=== PATIENT | female | born 1925 | race Caucasian/White ===

== ENCOUNTER 2016-08-25 16:15 | Inpatient (IN) | payer MEDICARE, BC ==
[2016-08-25 17:06] LABS: AUTOMATED BASOPHIL 0.9 % (0-2); AUTOMATED LYMPH 4.9 % (17-44); AUTOMATED MONOCYTE 5.4 % (3-10); AUTOMATED NEUTROPHIL 88.8 % (45-76); MPV 9.2 fL (7.4-10.4)
[2016-08-25 17:11] LABS: LEUKOCYTES/URINE 2+ (NEGATIVE); NITRITE/URINE NEG (NEGATIVE); URINE OCCULT BLOOD 1+ (NEG/TRACE)
[2016-08-25 17:16] LABS: BLOOD UREA NITROGEN 20 MG/DL (7-17); CALCIUM 9.4 MG/DL (8.4-10.2); CALCULATED OSMOLALITY 270 MOs/Kg (270-290); CHLORIDE 97 mEq/L (98-107); GLUCOSE 112 MG/DL (70-99); SODIUM LEVEL 138 mEq/L (137-146)
[2016-08-25] MEDS ORDERED: NS 1,000 ML IV ONE (20:55)
[2016-08-25] MEDS ORDERED: ONDANSETRON HCL 4 MG/2 ML VIAL IV ONE (20:56)
[2016-08-25] MEDS ORDERED: HYDROmorphone 1 MG INJECTION IV ONE (20:56)
[2016-08-25] MEDS ORDERED: Pharmacy Review for Metformin - IV Contrast Given SCH (21:00)
--- NOTE | 2016-08-25 22:12 | EDPRACDOC ---
- General Information Chief Complaint: Abdominal Pain Stated Complaint: ABDOMINAL PAIN Time Seen by Provider: 08/25/16 20:55 Information Source: Patient Mode Of Arrival: Car Home Medications: Home Medications Calcium Carbonate + Vitamin D [Oscal with Vitamin D] 500 mg PO BID 10/29/14 Fe Fum/Vit E AC/Vit Bcomp&C/Mn [B-50 Formula Tablet] 1 tab PO QHS 10/29/14 Gabapentin [Neurontin] 300 mg PO TID 10/29/14 Losartan Potassium [Cozaar] 50 mg PO DAILY 10/29/14 [place]-3 Fatty Acids/Fish Oil [Fish Oil 1,000 mg Capsule] 1,000 mg PO BID Spironolactone [Aldactone] 25 mg PO DAILY 10/29/14 Apixaban [Eliquis] 2.5 mg PO BID 08/25/16 Furosemide [Lasix] 20 mg PO BID 08/25/16 Allergies/Adverse Reactions: Allergies Allergy/AdvReac Type Severity Reaction Status Date / Time lisinopril Allergy Severe ANGIOEDEMA Verified 08/25/16 16:46 nabumetone [From Relafen] Allergy Severe SWELLINMG Verified 08/25/16 16:46 lorazepam AdvReac See Verified 08/25/16 16:46 Comments - History of Present Illness Onset: this AM Pain Location: Reports: RLQ, Periumbilical Pain Context: Reports: Spontaneous Pain Severity: Mild Pain Quality: Reports: Aching Adult Abdominal History: Denies: Abdominal Surgery Female Abdominal History: Reports: UTI. Denies: Abdominal Surgery Modifying Factors: improves with: Nothing Female Associated Signs & Symptoms: Reports: Nausea Oral Intake: Normal Urinary Output: Normal ED Past Medical History - History Reviewed Yes Nurses notes reviewed and agree except as marked - Patient Medical History Cardiac History: Reports: Hypertension, Congestive Heart Failure, Hypercholesterolemia, Syncope (5 YEARS) Respiratory History: Reports: Pneumonia, Pulmonary Embolism (NEW OCTOBER 2014) GI/ History: Reports: Urinary Tract Infection. Denies: Kidney Stones Musculoskeletal History: Reports: Arthritis (BACK), Osteoarthritis Psychological History: Reports: Anxiety. Denies: Depression, Substance Use Disorder Systemic History: Denies: Cancer Surgical History: Reports: Hernia Surgery (groin 195), Tonsillectomy/ Adnoidectomy - Family Medical History Reports: Hypertension (mother), Cancer (mother-breast) - Social Medical History Smoking Status: Never smoker Social History: Denies: Substance Use Disorder EDM Review of Systems - Review of Systems ROS Negative Except as Marked: Yes All systems reviewed and were negative except as marked - Physical Exam Constitutional: Alert (Awake), No apparent distress Oriented to: Time, Person, Place Last recorded Vital Signs: Last Vital Signs Temp 98.3 F 08/25/16 16:48 Pulse 63 08/25/16 21:25 Resp 18 08/25/16 21:25 BP 138/62 08/25/16 21:25 Pulse Ox 96 08/25/16 21:25 Oxygen Pulse Oxygen Saturation 96 O2 Device Room Air Oxygen Flow Rate Fraction of Inspired Oxygen ( FIO2) - HEENT Head: Normal ( normocephalic) Eye Exam: Normal (PERRL, EOMI, Sclera white) Oropharynx: Normal (Pharynx:Moist without exudate,Gums-no swelling) Tympanic Membrane: Normal ENT EAC: Normal TMJ: Normal Nose: No Symptoms Reported (septum midline) Neck: Normal (FROM, trachea at midline) - Respiratory/Cardiovascular Respiratory: Normal - CTA (BBS clear to auscultation without adventitious sounds ) Cardiovascular: Normal (RRR without murmur, gallop or rub) - GI Auscultation: Normal (NABS) Palpation: Normal (Soft,No rebound or guarding, non distended) Tenderness: Mild Hoang's Sign: Negative - Musculoskeletal Back: Normal (Non-Tender) Extremities: Normal (Normal tone, Pulses 2+ No cyanosis or edema, FROM) - Integumentary Skin: Normal, Warm, Dry Lymphatics: Normal (no adenopathy) - Neurologic Memory Impaired: Normal Motor Function: Normal (Normal tone, Pulses 2+ No cyanosis or edema, FROM) Cranial Nerve: Normal (CN II-X11 intact sensation, strength 5/5) Cerebellar: Normal Mood Description: Normal Perception: Normal - Results 08/25/16 16:50 08/25/16 16:50 WBC 13.0 xk/uL (3.8-10.8) H 08/25/16 16:50 RBC 4.21 xM/uL (4.20-5.40) 08/25/16 16:50 Hgb 13.3 g/dL (12.0-16.0) 08/25/16 16:50 Hct 39.9 % (36-47) 08/25/16 16:50 MCV 95 fL (81-99) 08/25/16 16:50 MCH 31.7 pg (27-32) 08/25/16 16:50 MCHC 33.4 g/dl (33-36) 08/25/16 16:50 RDW 13.0 % (11.5-14.5) 08/25/16 16:50 Plt Count 189 xk/uL (130-400) 08/25/16 16:50 MPV 9.2 fL (7.4-10.4) 08/25/16 16:50 Neut % (Auto) 88.8 % (45-76) H 08/25/16 16:50 Lymph % (Auto) 4.9 % (17-44) L 08/25/16 16:50 Payne % (Auto) 5.4 % (3-10) 08/25/16 16:50 Eos % (Auto) 0.0 % (0-5) 08/25/16 16:50 Baso % (Auto) 0.9 % (0-2) 08/25/16 16:50 Absolute Neuts (auto) 11.44 xk/uL (1.7-8.2) H 08/25/16 16:50 Absolute Lymphs (auto) 0.52 xk/uL (0.65-4.75) L 08/25/16 16:50 Sodium 138 mEq/L (137-146) 08/25/16 16:50 Potassium 4.5 mEq/L (3.5-5.1) 08/25/16 16:50 Chloride 97 mEq/L (98-107) L 08/25/16 16:50 Carbon Dioxide 30 mMOL/L (22-33) 08/25/16 16:50 Anion Gap 16 mEq/L (8-16) 08/25/16 16:50 BUN 20 MG/DL (7-17) H 08/25/16 16:50 Creatinine 0.80 MG/DL (0.52-1.04) 08/25/16 16:50 Estimated GFR (MDRD) > 60 mL/min (>=60) 08/25/16 16:50 Glucose 112 MG/DL (70-99) H 08/25/16 16:50 Calculated Osmolality 270 MOs/Kg (270-290) 08/25/16 16:50 Calcium 9.4 MG/DL (8.4-10.2) 08/25/16 16:50 Total Bilirubin 0.8 MG/DL (0.2-1.3) 08/25/16 16:50 AST 36 IU/L (14-36) 08/25/16 16:50 ALT 35 IU/L (9-52) 08/25/16 16:50 Alkaline Phosphatase 78 IU/L (55-165) 08/25/16 16:50 Total Protein 8.0 G/DL (6.3-8.2) 08/25/16 16:50 Albumin 4.2 G/DL (3.5-5.0) 08/25/16 16:50 Urine Color Dark yellow 08/25/16 16:55 Urine Clarity Cldy 08/25/16 16:55 Urine pH 6.0 (5.0-8.0) 08/25/16 16:55 Ur Specific Banner 1.005 (1.003-1.035) 08/25/16 16:55 Urine Protein Neg (NEG/TRACE) 08/25/16 16:55 Urine Glucose (UA) Trace (NEGATIVE) 08/25/16 16:55 Urine Ketones Neg (NEGATIVE) 08/25/16 16:55 Urine Occult Blood 1+ (NEG/TRACE) H 08/25/16 16:55 Urine Nitrite Neg (NEGATIVE) 08/25/16 16:55 Urine Bilirubin Neg (NEGATIVE) 08/25/16 16:55 Urine Urobilinogen <2.0 MG/DL (0-1) 08/25/16 16:55 Ur Leukocyte Esterase 2+ (NEGATIVE) H 08/25/16 16:55 Urine RBC 5-10 (0-5) H 08/25/16 16:55 Urine WBC 10-20 (0-5) H 08/25/16 16:55 Ur Epithelial Cells 1+ 08/25/16 16:55 Urine Bacteria Few (NEG/FEW) 08/25/16 16:55 Urine Mucus Occ (NEG/OCC) 08/25/16 16:55 Lab Results 08/25/16 08/25/16 08/25/16 16:55 16:50 16:50 WBC 13.0 H RBC 4.21 Hgb 13.3 Hct 39.9 MCV 95 MCH 31.7 MCHC 33.4 RDW 13.0 Plt Count 189 MPV 9.2 Neut % (Auto) 88.8 H Lymph % (Auto) 4.9 L Payne % (Auto) 5.4 Eos % (Auto) 0.0 Baso % (Auto) 0.9 Absolute Neuts (auto) 11.44 H Absolute Lymphs (auto) 0.52 L Sodium 138 Potassium 4.5 Chloride 97 L Carbon Dioxide 30 Anion Gap 16 BUN 20 H Creatinine 0.80 Estimated GFR (MDRD) > 60 Glucose 112 H Calculated Osmolality 270 Calcium 9.4 Total Bilirubin 0.8 AST 36 ALT 35 Alkaline Phosphatase 78 Total Protein 8.0 Albumin 4.2 Urine Color Dark yellow Urine Clarity Cldy Urine pH 6.0 Ur Specific Banner 1.005 Urine Protein Neg Urine Glucose (UA) Trace Urine Ketones Neg Urine Occult Blood 1+ H Urine Nitrite Neg Urine Bilirubin Neg Urine Urobilinogen <2.0 Ur Leukocyte Esterase 2+ H Urine RBC 5-10 H Urine WBC 10-20 H Ur Epithelial Cells 1+ Urine Bacteria Few Urine Mucus Occ - Departure Yes I personally saw and evaluated the patient. Disposition: Admit IP To This Hospital Condition: Good Final Diagnosis: Appendicitis Instructions: Acute Abdominal Pain (ED) Decision to Admit Time: 22:42 (EARL) Decision to admit date: 08/25/16 Decision to admit: from ED
[2016-08-25] MEDS ORDERED: ERTAPENEM 1 GM in NS 100 ML IV ONE (22:13)
--- NOTE | 2016-08-25 22:45 | DIRPT ---
CLINICAL DATA: 89-year-old female with right lower quadrant abdominal pain since early this morning. EXAM: CT ABDOMEN AND PELVIS WITH CONTRAST TECHNIQUE: Multidetector CT imaging of the abdomen and pelvis was performed using the standard protocol following bolus administration of intravenous contrast. CONTRAST: 100 mL of Isovue 370. COMPARISON: CT of the chest, abdomen and pelvis 04/09/2015. FINDINGS: Lower chest: Scattered areas of mild scarring in the visualize lung bases. Tiny pulmonary nodules in the right lung base measuring up to 4 mm (image 5 of series 4). Atherosclerotic calcifications in the right coronary artery. Hepatobiliary: Sub cm low-attenuation lesion in segment 5 of the liver is too small to characterize, but is statistically likely a tiny cyst. No other suspicious appearing hepatic lesions are noted. Gallbladder is unremarkable in appearance. Pancreas: No pancreatic mass. No pancreatic ductal dilatation. No pancreatic or peripancreatic fluid or inflammatory changes. Spleen: Unremarkable. Adrenals/Urinary Tract: Altered right renal axis (normal anatomical variant) incidentally noted. Focal area of cortical thinning in the posterior aspect of the lower pole the left kidney, compatible with an area of post infectious or inflammatory scarring. Bilateral adrenal glands are normal in appearance. No hydroureteronephrosis. Urinary bladder is normal in appearance. Stomach/Bowel: The appearance of the stomach is normal. No pathologic dilatation of small bowel or colon. Numerous colonic diverticulae are noted, without surrounding inflammatory changes to suggest an acute diverticulitis at this time. Several appendicoliths are noted within the lumen of the appendix. The mid to distal aspect of the appendix is dilated measuring up to 14 mm in diameter. There are surrounding periappendiceal inflammatory changes and a trace amount of periappendiceal fluid. Vascular/Lymphatic: Atherosclerosis throughout the abdominal and pelvic vasculature, without evidence of aneurysm or dissection. No lymphadenopathy noted in the abdomen or pelvis. Reproductive: Uterus and ovaries are atrophic. Other: No significant volume of ascites. No pneumoperitoneum. Musculoskeletal: There are no aggressive appearing lytic or blastic lesions noted in the visualized portions of the skeleton. IMPRESSION: 1. Findings, as above, compatible with an acute appendicitis. Surgical consultation is strongly recommended at this time. 2. Atherosclerosis, including right coronary artery disease. 3. Additional incidental findings, as above. Critical Value/emergent results were called by telephone at the time of interpretation on 08/25/2016 at 10:[address] Liane COLE MD, who verbally acknowledged these results. Electronically Signed By: Aidan Sierra M.D. On: 08/25/2016 22:42
--- NOTE | 2016-08-25 23:09 | HIMCONSMED ---
Consultation Date: 08/25/16 Requesting Physician: Brijesh Villegas Consulting Doctor: Jorge Lacy Consult Reason: Medical Management PRIMARY CARE PROVIDER: Dr. Combs HPI: The patient is an 89 yo woman who presents with abdominal pain that worsened as the day went on. Onset: Started this morning. Duration: intermittent. Location: lower abdomen but worse on right. Radiation: none. Character: Shooting pain when she moves around. Pain was 7/10 at times. Alleviated by: Nothing. Exacerbated by: walking and moving around. Associated Symptoms: Nausea. No vomiting. No diarrhea. No constipation. No bloody stool. Decreased PO intake. No fever or chills. Treatments: none at home except usual medications. 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 Her last dose was today, , at 0730. Chief Complaint: abdominal pain - Past Medical and Surgical History Cardiac History: Reports: Atrial Fibrillation (on Eliquis), Hypertension, Hypercholesterolemia, Other (ECHO 2008: EF60%. Minimal aortic stenosis.) Respiratory History: Reports: Pneumonia, Pulmonary Embolism (DVT 2011 and 2014. PE October 2014 now on Eliquis.) GI/ History: Reports: Urinary Tract Infection. Denies: Kidney Stones Systemic History: Denies: Cancer Musculoskeletal History: Reports: Arthritis (BACK. Also neuropathy in feet.), Osteoarthritis Psychological History: Reports: Anxiety. Denies: Depression, Substance Use Disorder Past Surgical History: Reports: Hernia Surgery (groin 1957), Tonsillectomy/ Adnoidectomy, Other (Carpal tunnel around 1999.) OTHER HISTORY: ECHOCARDIOGRAM 11/06/2008: EF 60%. Normal left ventricular function. Impaired relaxation. Minimal aortic stenosis. Mild tricuspid regurgitation. Pulmonary artery pressure 30 mmHg. Had a negative stress test in [place] in 2008. Allergies lisinopril Allergy (Severe, Verified 08/25/16 16:46) ANGIOEDEMA nabumetone [From Relafen] Allergy (Severe, Verified 08/25/16 16:46) SWELLINMG lorazepam Adverse Reaction (Verified 08/25/16 16:46) See Comments Patient could not tolerate Lorazepam, it made her extremely 'loopy' and she said she would not like to take it ever again. Home Medications Calcium Carbonate + Vitamin D [Oscal with Vitamin D] 500 mg PO BID 10/29/14 Fe Fum/Vit E AC/Vit Bcomp&C/Mn [B-50 Formula Tablet] 1 tab PO QHS 10/29/14 Gabapentin [Neurontin] 300 mg PO TID 10/29/14 Losartan Potassium [Cozaar] 50 mg PO DAILY 10/29/14 [place]-3 Fatty Acids/Fish Oil [Fish Oil 1,000 mg Capsule] 1,000 mg PO BID Spironolactone [Aldactone] 25 mg PO DAILY 10/29/14 Apixaban [Eliquis] 2.5 mg PO BID 08/25/16 Furosemide [Lasix] 20 mg PO BID 08/25/16 Reviewed. - Social History Travel Outside of [place] in the Last 3 Months?: No Lives: Other (in appartments at [facility], not assisted living) Smoking Status: Never smoker Social History: Denies: Alcohol Use, Substance Use Disorder - Family History Reports: Hypertension (mother), Cancer (mother-breast) - Review of Systems GENERAL: No Fever, chills, or diaphoresis. Positive for fatigue/malaise. HEENT: No ear pain or discharge. No nasal discharge or bleeding. No throat pain or swelling. No eye pain or eye redness. RESPIRATORY: No cough, wheezing, or shortness of breath. CARDIOVASCULAR: No chest pain or palpitations. GI: Abdominal pain, nausea. No vomiting, diarrhea, constipation, or bloody stool. NEUROLOGICAL: No headache or focal weakness. INTEGUMENT: no rashes, itching, or lesions. LYMPHATIC SYSTEM: no lymph node swelling or pain. MUSCULOSKELETAL: no pain or joint swelling. GENITOURINARY: No dysuria or hematuria. ENDOCRINE: No polyuria or polydipsia. HEME: No chronic anemia, bleeding. Positive for easy bruising. - Physical Exam Vital Signs: Initial Vitals Temperature 98.3 F 08/25/16 16:48 Pulse Rate 61 08/25/16 16:48 Respiratory Rate 20 08/25/16 16:48 Blood Pressure 144/63 08/25/16 16:48 Pulse Oxygen Saturation 95 08/25/16 16:48 Vital Signs - 24 hr 08/25/16 08/25/16 16:48 21:25 Temperature 98.3 F Pulse Rate 61 63 Respiratory 20 18 Rate Blood Pressure 144/63 138/62 Pulse Oxygen 95 96 Saturation Weight: 74.8 kg Height: 5 feet 6 inches BMI: 26.6 - Other Exam Other Exam Findings: GENERAL: Ill-appearing, well nourished, in acute distress. HEENT: Normocephalic, atraumatic; pupils equal and round. Nares patent, without discharge or bleeding. No oropharyngeal lesions or erythema. Mucous membranes are dry. NECK: is supple, no masses, trachea midline. RESPIRATORY: Clear to auscultation bilaterally. Chest wall movements are symmetric. No use of accessory muscles to breathe. No wheezing, rales, rhonchi. CARDIOVASCULAR: Normal S1, S2. Murmur 3/6 systolic. No rubs, or gallops. PMI non -displaced. Carotids: no carotid bruits. No bradycardia or tachycardia. DP pulses 2+ bilaterally. GI: soft, non-distended, normal active bowel sounds. No hepatosplenomegaly. Tenderness in right lower quadrant. No rebound or guarding. INTEGUMENT: Clean, dry, and intact. No rashes. No lesions. MUSCULOSKELETAL: Moving all extremities. No cyanosis. No clubbing. Edema: trace lower extremity edema bilaterally. NEUROLOGICAL: Cranial nerves 2-12 grossly intact. Motor 5/5 throughout. Reflexes : 2+ bilaterally. Babinski: toes downgoing bilaterally. Intact Finger to nose. Sensory grossly intact to light touch. Intact rapid alternating movements bilaterally. No pronator drift. PSYCHIATRIC: Fully oriented. Normal and appropriate affect. LYMPHATIC: No cervical lymphadenopathy. No supraclavicular lymphadenopathy. - Lab Results Laboratory Results - last 24 hr 08/25/16 08/25/16 08/25/16 16:50 16:50 16:55 WBC 13.0 H RBC 4.21 Hgb 13.3 Hct 39.9 MCV 95 MCH 31.7 MCHC 33.4 RDW 13.0 Plt Count 189 MPV 9.2 Neut % (Auto) 88.8 H Lymph % (Auto) 4.9 L Weber % (Auto) 5.4 Eos % (Auto) 0.0 Baso % (Auto) 0.9 Absolute Neuts (auto) 11.44 H Absolute Lymphs (auto) 0.52 L Sodium 138 Potassium 4.5 Chloride 97 L Carbon Dioxide 30 Anion Gap 16 BUN 20 H Creatinine 0.80 Estimated GFR (MDRD) > 60 Glucose 112 H Calculated Osmolality 270 Calcium 9.4 Total Bilirubin 0.8 AST 36 ALT 35 Alkaline Phosphatase 78 Total Protein 8.0 Albumin 4.2 Urine Color Dark yellow Urine Clarity Cldy Urine pH 6.0 Ur Specific [place] 1.005 Urine Protein Neg Urine Glucose (UA) Trace Urine Ketones Neg Urine Occult Blood 1+ H Urine Nitrite Neg Urine Bilirubin Neg Urine Urobilinogen <2.0 Ur Leukocyte Esterase 2+ H Urine RBC 5-10 H Urine WBC 10-20 H Ur Epithelial Cells 1+ Urine Bacteria Few Urine Mucus Occ - Diagnostic Findings EK bpm. Sinus rhythm with first degree AV block. Left ventricular hypertrophy with repolarization abnormality. Possible inferior or anterior infarct, age undetermined. Reviewed EKG personally. CT abdomen and pelvis: EXAM: CT ABDOMEN AND PELVIS WITH CONTRAST TECHNIQUE: Multidetector CT imaging of the abdomen and pelvis was performed using the standard protocol following bolus administration of intravenous contrast. CONTRAST: 100 mL of Isovue 370. COMPARISON: CT of the chest, abdomen and pelvis 04/09/2015. FINDINGS: Lower chest: Scattered areas of mild scarring in the visualize lung bases. Tiny pulmonary nodules in the right lung base measuring up to 4 mm (image 5 of series 4). Atherosclerotic calcifications in the right coronary artery. Hepatobiliary: Sub cm low-attenuation lesion in segment 5 of the liver is too small to characterize, but is statistically likely a tiny cyst. No other suspicious appearing hepatic lesions are noted. Gallbladder is unremarkable in appearance. Pancreas: No pancreatic mass. No pancreatic ductal dilatation. No pancreatic or peripancreatic fluid or inflammatory changes. Spleen: Unremarkable. Adrenals/Urinary Tract: Altered right renal axis (normal anatomical variant) incidentally noted. Focal area of cortical thinning in the posterior aspect of the lower pole the left kidney, compatible with an area of post infectious or inflammatory scarring. Bilateral adrenal glands are normal in appearance. No hydroureteronephrosis. Urinary bladder is normal in appearance. Stomach/Bowel: The appearance of the stomach is normal. No pathologic dilatation of small bowel or colon. Numerous colonic diverticulae are noted, without surrounding inflammatory changes to suggest an acute diverticulitis at this time. Several appendicoliths are noted within the lumen of the appendix. The mid to distal aspect of the appendix is dilated measuring up to 14 mm in diameter. There are surrounding periappendiceal inflammatory changes and a trace amount of periappendiceal fluid. Vascular/Lymphatic: Atherosclerosis throughout the abdominal and pelvic vasculature, without evidence of aneurysm or dissection. No lymphadenopathy noted in the abdomen or pelvis. Reproductive: Uterus and ovaries are atrophic. Other: No significant volume of ascites. No pneumoperitoneum. Musculoskeletal: There are no aggressive appearing lytic or blastic lesions noted in the visualized portions of the skeleton. IMPRESSION: 1. Findings, as above, compatible with an acute appendicitis. Surgical consultation is strongly recommended at this time. 2. Atherosclerosis, including right coronary artery disease. 3. Additional incidental findings, as above. Critical Value/emergent results were called by telephone at the time of interpretation on 08/25/2016 at 10:[address] Liane COLE MD, who verbally acknowledged these results. - Assessment (1) Acute appendicitis K35.80 - UNSPECIFIED ACUTE APPENDICITIS Acute Present on Admission: Yes Patient is at moderate risk due to age and history of PE, atrial fibrillation, with long-term anticoagulation. Does have a murmur but EF normal by 2008 echocardiogram. Plan: Recommend proceeding with surgery because benefits outweigh risks. Agree with cultures and IV Zosyn. (2) Acute cystitis without hematuria N30.00 - ACUTE CYSTITIS WITHOUT HEMATURIA Acute Present on Admission: Yes Plan: Cultures ordered. IV Zosyn will also cover the UTI. (3) Current use of [facility] anticoagulation Z79.01 - EXPERT WITNESS (CURRENT) USE OF ANTICOAGULANTS Acute Present on Admission: Yes On Eliquis for history of pulmonary embolism and DVT in 2014 and a DVT in 2011, along with chronic atrial fibrillation. Plan: Stop Eliquis for surgery. Restart as soon as feasible. (4) Hypertension I10 - ESSENTIAL (PRIMARY) HYPERTENSION Acute Present on Admission: Yes Plan: Continue medications. Hold if SBP is less than 120. Case Care Discussed with: Patient, Family, Nursing Staff
[2016-08-25] MEDS ORDERED: PROMETHAZINE 25 MG/ML VIAL IV PRN (23:16)
[2016-08-26] MEDS: PIPERACILLIN AND TAZOBACTAM 3.375 GM in D5W 100 ML IV SCH ×5 (00:52→23:52)
[2016-08-26] MEDS ORDERED: GUAIFEN 100 MG-DEXTROMETH 10 MG PER 5 ML PO PRN (01:24)
[2016-08-26] MEDS ORDERED: ACETAMINOPHEN 325 MG SUPP PR PRN (01:24)
[2016-08-26] MEDS ORDERED: BENZONATATE 100 MG PERLES PO PRN (01:24)
[2016-08-26] MEDS ORDERED: TEMAZEPAM 15 MG CAP PO PRN (01:24)
[2016-08-26 01:58] LABS: MPV 9.7 fL (7.4-10.4)
[2016-08-26 02:04] LABS: BLOOD UREA NITROGEN 21 MG/DL (7-17); CALC CORRECTED 9.1 MG/DL (8.4-10.2); CALCIUM 8.4 MG/DL (8.4-10.2); CALCULATED OSMOLALITY 268 MOs/Kg (270-290); CHLORIDE 99 mEq/L (98-107); GLUCOSE 121 MG/DL (70-99); SODIUM LEVEL 137 mEq/L (137-146); TOTAL PROTEIN 6.6 G/DL (6.3-8.2)
[2016-08-26] MEDS: LR 1,000 ML IV SCH ×2 (02:27→23:41)
[2016-08-26] MEDS ORDERED: Vaccine Screening Complete SCH (03:00)
[2016-08-26] MEDS: GABAPENTIN 300 MG CAP PO SCH ×3 (04:32→20:37)
[2016-08-26] MEDS: HYDROmorphone 1 MG INJECTION IV PRN (08:41)
[2016-08-26] MEDS: FUROSEMIDE 20 MG TAB PO SCH ×2 (08:43→17:24)
[2016-08-26] MEDS: SPIRONOLACTONE 25 MG TAB PO SCH (08:44)
[2016-08-26] MEDS: LOSARTAN POTASSIUM 50 MG TAB PO SCH (08:44)
[2016-08-26] MEDS: OMEGA-3-ACID ETHYL ESTERS 1000 MG CAP PO SCH ×2 (08:44→20:37)
[2016-08-26] MEDS: CALCIUM CARBONATE + VITAMIN D 500 MG TAB PO SCH ×2 (12:25→17:29)
[2016-08-26] MEDS: VITS,MINERALS,IRON TAB PO SCH (12:25)
--- NOTE | 2016-08-26 13:35 | PCM.SURGCO ---
Consultation Date: 08/26/16 Requesting Physician: Allan Harris Bin Cleaner: Brijesh Villegas Consult Reason: Appendicitis - History of Present Illness The patient is a very pleasant 89-year-old female who developed abdominal pain yesterday. He continued so she had come to the emergency room and had a CT scan that showed appendicitis. We have been asked to see her for this. She has some nausea but no vomiting and no diarrhea. She has not had anything like this before in the past. She has no fever and no chills. She is on Eliquis for a history of DVT. Chief Complaint: abdominal pain - Past Medical and Surgical History Cardiac History: Reports: Atrial Fibrillation, Hypertension, Hypercholesterolemia, Other (ECHO 2008: EF60%. Minimal aortic stenosis.) Respiratory History: Reports: Pneumonia, Pulmonary Embolism (DVT 2011 and 2014. PE October 2014 now on Eliquis.) GI/ History: Reports: Urinary Tract Infection. Denies: Kidney Stones, Gastroesophageal Reflux Systemic History: Denies: Cancer, Diabetes Musculoskeletal History: Reports: Arthritis (BACK. Also neuropathy in feet.), Osteoarthritis Psychological History: Reports: Anxiety. Denies: Depression, Alcoholism, Substance Use Disorder Neurological History: Reports: No Significant History. Denies: Cerebrovascular Accident, Seizures Past Surgical History: Reports: Hernia Surgery (groin 1957), Tonsillectomy/ Adnoidectomy, Other (Carpal tunnel around 1999.) Allergies lisinopril Allergy (Severe, Verified 08/25/16 16:46) ANGIOEDEMA nabumetone [From Relafen] Allergy (Severe, Verified 08/25/16 16:46) SWELLINMG lorazepam Adverse Reaction (Verified 08/25/16 16:46) See Comments Patient could not tolerate Lorazepam, it made her extremely 'loopy' and she said she would not like to take it ever again. Home Medications Calcium Carbonate + Vitamin D [Oscal with Vitamin D] 500 mg PO BID 10/29/14 Fe Fum/Vit E AC/Vit Bcomp&C/Mn [B-50 Formula Tablet] 1 tab PO QHS 10/29/14 Gabapentin [Neurontin] 300 mg PO TID 10/29/14 Losartan Potassium [Cozaar] 50 mg PO DAILY 10/29/14 [place]-3 Fatty Acids/Fish Oil [Fish Oil 1,000 mg Capsule] 1,000 mg PO BID Spironolactone [Aldactone] 25 mg PO DAILY 10/29/14 Apixaban [Eliquis] 2.5 mg PO BID 08/25/16 Furosemide [Lasix] 20 mg PO BID 08/25/16 - Social History Travel Outside of [place] in the Last 3 Months?: No Lives: Other (in appartments at [facility], not assisted living) Smoking Status: Never smoker Social History: Denies: Alcohol Use, Substance Use Disorder - Family History Reports: Hypertension (mother), Cancer (mother-breast) - Review of Systems Constitutional: No Symptoms Reported. negative: Chills, Fever Eyes: No Symptoms Reported. negative: Blurred Vision, Double Vision Ears: No Symptoms Reported. negative: Hearing Loss, Pain Nose: No Symptoms Reported. negative: Abrasion, Bleeding Mouth: No Symptoms Reported. negative: Pain, Dry Mouth Throat/Neck: No Symptoms Reported. negative: Pain, Hoarseness Respiratory: No Symptoms Reported. negative: Cough, Wheezing Cardiovascular: No Symptoms Reported. negative: Chest Pain, Palpitations Gastrointestinal: Nausea, Abdominal Pain. negative: Vomiting, Diarrhea Genitourinary: No Symptoms Reported. negative: Bleeding, Dysuria Neurological: No Symptoms Reported. negative: Dizziness, Seizure Musculoskeletal:: Joint Pain. negative: Muscle Pain, Joint Swelling Integumentary: No Symptoms Reported. negative: Bruising, Rash Allergic/Immunologic: No Symptoms Reported. negative: Hives, Itching Hematologic: No Symptoms Reported. negative: Lymphadenopathy, Anemia Endocrine: No Symptoms Reported. negative: Weight Gain, Weight Loss Psychiatric: Anxiety. negative: Depression - Physical Exam Vital Signs: Initial Vitals Temperature 98.3 F 08/25/16 16:48 Pulse Rate 61 08/25/16 16:48 Respiratory Rate 20 08/25/16 16:48 Blood Pressure 144/63 08/25/16 16:48 Pulse Oxygen Saturation 95 08/25/16 16:48 Constitutional: No apparent distress, Alert Oriented to: Time, Person, Place - HEENT Head: Normal. negative: Abrasion, Laceration, Tender Eye: Normal. negative: Edema, Scleral Icterus Oropharynx: Normal. negative: Membranes Dry, Red ENT EAC: Normal. negative: Blood TMJ: Normal. negative: Crepitance, Tender Nose: No Symptoms Reported. negative: Abrasion, Bleeding Respiratory: Normal - CTA. negative: Diminished, Rhonchi Cardiovascular: negative: Bradycardia, Tachycardia, Diastolic murmur, Systolic murmur - GI Auscultation: Normal. negative: Bruit Palpation: Normal. negative: Enlarged liver, Enlarged spleen Tenderness: Mild, RLQ Hoang's Sign: Negative Rectal Exam: Deferred - Exam Deferred: Yes - Musculoskeletal Back: Normal. negative: Abrasion, CVA Tenderness Extremities: Normal. negative: Calf Tenderness, Clubbing, Cyanosis, Edema Spine: non-tender, full range of motion, normal alignment - Integumentary Skin: Normal. negative: Clammy, Diaphoretic Lymphatics: Normal. negative: Adenopathy, Tender - Neurologic Memory Impaired: Normal Motor Function: Normal Cranial Nerve: Normal Cerebellar: Normal Mood Description: Normal Thought: Coherent Perception: Normal - Lab Results 08/26/16 01:20 08/26/16 01:20 - Assessment/Plan (1) Acute appendicitis K35.80 - UNSPECIFIED ACUTE APPENDICITIS Acute Comment: Admit for IV antibiotics, IV fluids and laparoscopic appendectomy. Will have to wait until her Eliquis is out of her system so she does not bleed during surgery. I have explained this to her in detail and she is in agreement. (2) Deep vein thrombosis, lower left extremity I82.402 - ACUTE EMBOLISM AND THOMBOS UNSP DEEP VEINS OF L LOW EXTREM Acute Comment: Patient had been on Eliquis for over a year. Will stop briefly for surgery. (3) Pulmonary embolism I26.99 - OTHER PULMONARY EMBOLISM WITHOUT ACUTE COR PULMONALE Acute Comment: Has been treated for over a year. Will get her back on Eliquis as soon as possible. (4) Abdominal pain R10.9 - UNSPECIFIED ABDOMINAL PAIN Acute Comment: Treat underlying disorder.
--- NOTE | 2016-08-26 13:36 | GENMEDPROG ---
Chief Complaint: Still with severe right lower quadrant abdominal pain. She denies chest pain or shortness of breath. No nausea or vomiting. Notes Reviewed: Yes Events from last night noted and discussed with Clinical Staff Current Medication List: Reviewed Currently: Reports: Abdominal Pain. Denies: Cough, Wheezing, NUNEZ, SOB, Sputum, Nausea and Vomiting DVT Prophylaxis: Yes - Physical Examination Vital Signs and I&O: Last Vital Signs Temp 98.9 F 08/26/16 12:00 Pulse 61 08/26/16 12:00 Resp 20 08/26/16 12:00 BP 127/60 08/26/16 12:00 Pulse Ox 92 08/26/16 12:00 Oxygen Pulse Oxygen Saturation 92 O2 Device Nasal Cannula Oxygen Flow Rate 2 Fraction of Inspired Oxygen ( FIO2) Intake & Output 08/23/16 08/24/16 08/25/16 08/26/16 23:59 23:59 23:59 23:59 Intake Total 600 342 Output Total 800 Balance 600 -458 Patient's weight 75.523 kg General: Alert, Oriented x3, Cooperative, Well appearing, Well nourished HEENT: Normal, PERRLA, EOMI Neck: Non-tender, Full range of motion, Normal Trachea alignment, Normal inspection. negative: Tender midline, JVD Lymphatics: Normal (no adenopathy) Respiratory: Normal - CTA (BBS clear to auscultation without adventitious sounds ) Cardiovascular: Regular rate and rhythm, No Gallops,Rubs/Murmurs GI: Normal bowel sounds, Soft, Non tender, No hepatospenomegaly Extremities/Musculoskeletal: Normal pulses. negative: Tenderness, Swelling, Edema Skin: Warm,Dry and Intact, No rashes, No breakdown, No significant lesion Neurological: Normal Steady Gait, Normal speech, Strength at 5/5 X4 ext, Normal tone, Cranial nerves 3-12 NL Psych/Mental Status: Appropriate, Normal Affect, Cooperative Lab/DI/Studies Reviewed: Laboratory Results - last 24 hr 08/25/16 08/25/16 08/25/16 01:20 16:50 16:50 WBC 13.0 H RBC 4.21 Hgb 13.3 Hct 39.9 MCV 95 MCH 31.7 MCHC 33.4 RDW 13.0 Plt Count 189 MPV 9.2 Neut % (Auto) 88.8 H Lymph % (Auto) 4.9 L [place] % (Auto) 5.4 Eos % (Auto) 0.0 Baso % (Auto) 0.9 Absolute Neuts (auto) 11.44 H Absolute Lymphs (auto) 0.52 L Sodium 138 Potassium 4.5 Chloride 97 L Carbon Dioxide 30 Anion Gap 16 BUN 20 H Creatinine 0.80 Estimated GFR (MDRD) > 60 Glucose 112 H Calculated Osmolality 270 Lactic Acid 1.2 Calcium 9.4 Corrected Calcium Total Bilirubin 0.8 AST 36 ALT 35 Alkaline Phosphatase 78 Total Protein 8.0 Albumin 4.2 Urine Color Urine Clarity Urine pH Ur Specific [place] Urine Protein Urine Glucose (UA) Urine Ketones Urine Occult Blood Urine Nitrite Urine Bilirubin Urine Urobilinogen Ur Leukocyte Esterase Urine RBC Urine WBC Ur Epithelial Cells Urine Bacteria Urine Mucus 08/25/16 08/26/16 08/26/16 16:55 01:20 01:20 WBC 15.5 H RBC 3.82 L Hgb 12.0 Hct 36.2 MCV 95 MCH 31.3 MCHC 33.0 RDW 13.1 Plt Count 186 MPV 9.7 Neut % (Auto) Lymph % (Auto) [place] % (Auto) Eos % (Auto) Baso % (Auto) Absolute Neuts (auto) Absolute Lymphs (auto) Sodium 137 Potassium 4.5 Chloride 99 Carbon Dioxide 28 Anion Gap 15 BUN 21 H Creatinine 0.80 Estimated GFR (MDRD) > 60 Glucose 121 H Calculated Osmolality 268 L Lactic Acid Calcium 8.4 Corrected Calcium 9.1 Total Bilirubin 0.7 AST 30 ALT 37 Alkaline Phosphatase 65 Total Protein 6.6 Albumin 3.3 L Urine Color Dark yellow Urine Clarity Cldy Urine pH 6.0 Ur Specific [place] 1.005 Urine Protein Neg Urine Glucose (UA) Trace Urine Ketones Neg Urine Occult Blood 1+ H Urine Nitrite Neg Urine Bilirubin Neg Urine Urobilinogen <2.0 Ur Leukocyte Esterase 2+ H Urine RBC 5-10 H Urine WBC 10-20 H Ur Epithelial Cells 1+ Urine Bacteria Few Urine Mucus Occ - Assessment (1) Acute appendicitis Acute K35.80 - UNSPECIFIED ACUTE APPENDICITIS Qualifiers: Acute appendicitis type: unspecified acute appendicitis type Qualified Code (s): K35.80 - Unspecified acute appendicitis Comment/Plan: Continue IV antibiotics and pain control. Clinically appears stable. She is significantly tender in her right lower quadrant. Will go ahead and check a 2D echo given history of PE and AFib. (2) Abdominal pain Acute R10.9 - UNSPECIFIED ABDOMINAL PAIN Qualifiers: Abdominal location: right lower quadrant Qualified Code(s): R10.31 - Right lower quadrant pain Comment/Plan: IV antibiotics and pain control. (3) Current use of manager long term care anticoagulation Acute Z79.01 - COMPUTER LANGUAGE CODER (CURRENT) USE OF ANTICOAGULANTS Comment/Plan: Holding Eliquis for surgery. Restart when stable from surgery standpoint given long history of chronic AFib. (4) Dehydration Acute E86.0 - DEHYDRATION Comment/Plan: Resolved. Discontinue IV fluids (5) Hypertension Acute I10 - ESSENTIAL (PRIMARY) HYPERTENSION Qualifiers: Hypertension type: essential hypertension Qualified Code(s): I10 - Essential (primary) hypertension Comment/Plan: Continue medications, control pain. Monitor Case Care Discussed with: Patient, Family, Resource Management
[2016-08-26] MEDS: GENTAMICIN IV SCH (15:53)
[2016-08-26] MEDS: NS IV SCH (15:53)
--- NOTE | 2016-08-26 17:10 | CAPUECHO ---
INDICATION: PRE OP EVAL HEIGHT: 167.6 cm (5 ft 6.0 in) WEIGHT: 75.3 kg (166.0 lbs) BP: 108/54 BSA: 1.419046 m MEASUREMENTS 2D RVIDd: 3.0 cm IVSd: 1.2 cm LVIDd: 4.6 cm LVPWd: 1.2 cm LVIDs: 3.1 cm EF(Teich): 59.67 % LA Diam: 3.7 cm EF Biplane: 65.69 % LAESV MOD A4C: 63.7 ml LAESV MOD A2C: 82.4 ml LAESV Index (A-L): 44.38 ml/m DOPPLER MV E Elliot: 0.66 m/s MV A Elliot: 0.96 m/s MV PHT: 80.01 ms MVA By PHT: 2.75 cm LVOT Vmax: 1.40 m/s AV Vmax: 1.45 m/s TR Vmax: 3.21 m/s TR maxP mmHg RVSP: 51.17 mmHg FINDINGS ------- Procedure:2D images, m-mode, color and spectral Doppler were obtained and reviewed. ECG rhythm:Sinus rhythm. Study quality:This was a technically difficult study with suboptimal views. Left Ventricle:The left ventricular size is normal. Overall left ventricular systolic function is normal with, an EF between 55 - 60 %. The diastolic filling pattern indicates impaired relaxation. Right Ventricle:The right ventricle is normal in size and function. The RV was not well visualized . Left Atrium:The left atrium is normal in size. Right Atrium:The right atrium was not well visualized. Aortic Valve:The aortic valve is trileaflet and appears structurally normal. There is mild aortic valve sclerosis. Mitral Valve:Normal appearing mitral valve. Mild mitral regurgitation is present. Tricuspid Valve:The tricuspid valve appears structurally normal. [id number]-[id number] tricuspid regurg itation present. The right ventricular systolic pressure, as measured by Doppler, is 51mmhg.. Pulmonic Valve:The pulmonic valve is normal. Trace/mild (physiologic) pulmonic regurgitation. Aorta:The aortic root, ascending aorta and aortic arch appear normal. IVC:Normal inferior vena cava with normal inspiratory collapse. Pericardium:There is no pericardial effusion. CONCLUSIONS 1. This was a technically difficult study with suboptimal views. 2. Overall left ventricular systolic function is normal with, an EF between 55 - 60 %. 3. The diastolic filling pattern indicates impaired relaxation. 4. The left atrium is normal in size. 5. The right atrium was not well visualized. 6. Mild mitral regurgitation is present. 7. Dwic-cu-[id number] tricuspid regurgitation present. 8. The right ventricular systolic pressure, as measured by Doppler, is 51mmhg.. Electronically Signed By: Chucho Mathis MD -- Electronically Signed On: 17:04:31
[2016-08-26] MEDS: ACETAMINOPHEN 325 MG/TAB TABLET PO PRN (17:29)
[2016-08-26] MEDS ORDERED: [UNRECOGNIZED DRUG - OTHER] PO SCH (21:00)
[2016-08-26] MEDS ORDERED: VIT E AC PO SCH (21:00)
[2016-08-26] MEDS ORDERED: VIT BCOMP PO SCH (21:00)
[2016-08-27] MEDS: LR 1,000 ML IV SCH (03:48)
[2016-08-27] MEDS: GABAPENTIN 300 MG CAP PO SCH ×3 (03:49→22:02)
[2016-08-27] MEDS: HYDROmorphone 1 MG INJECTION IV PRN ×2 (04:05→14:03)
[2016-08-27] MEDS: PIPERACILLIN AND TAZOBACTAM 3.375 GM in D5W 100 ML IV SCH ×3 (06:16→18:38)
[2016-08-27] MEDS ORDERED: HYDROmorphone 1 MG INJECTION IV PRN ×2 (07:18)
[2016-08-27] MEDS ORDERED: FENTANYL 100 MCG/2 ML VIAL IV PRN ×2 (07:18)
[2016-08-27] MEDS ORDERED: MEPERIDINE 25 MG/ML TUBEX IV PRN (07:18)
[2016-08-27] MEDS ORDERED: LABETALOL 20 MG/4 ML SYRINGE IV PRN (07:18)
[2016-08-27] MEDS ORDERED: ONDANSETRON HCL 4 MG/2 ML VIAL IV PRN (07:18)
[2016-08-27] MEDS ORDERED: ONDANSETRON HCL 4 MG ODT TAB PO PRN (07:18)
[2016-08-27] MEDS ORDERED: hydrALAZINE 20 MG/ML VIAL IV PRN (07:18)
--- NOTE | 2016-08-27 07:22 | HIM.ANES ---
Anesthesia Evaluation & Plan - Focused Review of Systems Cardiac History: Yes: Hx Hypertension, Hx Cardia Arrhythmia (PT UNSURE OF NAME OR TYPE), Hx Afib/Aflutter, Hx Cardiac Disorders, Hx Deep Vein Thrombosis Comment Only: Hx Congestive Heart Failure (PT DENIES) HEENT: Yes: Macular Degeneration, Hx Vision Problem (Rx glasses), Other HEENT Problems Respiratory: Yes: Hx Pneumonia Gastrointestinal: Yes: Hx Gastrointestinal Disorders, Hx Colonoscopy (2004) Neurological/Musculoskeletal: Yes: Hx Syncope (5 YEARS), Hx Peripheral Neuropathy, Hx Neurological Disorders No: HX Cerebrovascular Accident, Hx Seizures Other Neurological Problems: NERUOPATHY Physiological: Yes Hx Anxiety, No Hx Depression, Yes Hx Mental/Emotional Disorders Endocrine: No: Hx Diet Controlled Diabetes, Hx Non-Insulin Dependent Diabetes, Hx Insulin Dependent Diabetes, Hx Hyperthyroidism, Hx Hypothyroidism Blood/Autoimmune: No: Hx Blood Transfusions, Hx Anemia, Hx AIDS, Hx Hepatitis (type) Smoking Status: Never smoker Past Social History: Denies: Alcohol Use, Substance Use Disorder Hx Stress Test (date): Yes (2008) Hx Echocardiogram (date): Yes (08/26/16) Hx Chest Xray (date): Yes (2014) Surgical History: Yes: Nasal (septoplasty), T&A, Other (Carpal tunnel around 1999.) Other Surgical History: right carpel tunnel surgery - APPROX 2009 - Focused Physical Exam NPO since: mn Mallampati: Class II Neck: Limited Range of Motion Dental: Removable Dental Work Cardiovascular/Chest: Normal Respiratory: Lungs clear Any problems with anesthesia, including nausea and vomiting?: No Any relatives with a history of Malignant Hyperthermia?: No Beta Ana given (if appropriate): N/A Other: Problem List Problem Status Onset Abdominal pain Acute Acute appendicitis Acute Acute cystitis without hematuria Acute Appendicitis Acute Current use of terminal carman anticoagulation Acute Deep vein thrombosis, lower left extremity Acute Dehydration Acute Hypertension Acute Monoclonal gammopathy of unknown significance Acute Pulmonary embolism Acute Respiratory failure, acute Acute Anxiety disorder Chronic Dyslipidemia Chronic CBC/BMP/Other 08/26/16 01:20 08/26/16 01:20 Allergies Allergy/AdvReac Type Severity Reaction Status Date / Time lisinopril Allergy Severe ANGIOEDEMA Verified 08/25/16 16:46 nabumetone [From Relafen] Allergy Severe SWELLINMG Verified 08/25/16 16:46 lorazepam AdvReac See Verified 08/25/16 16:46 Comments Home Medications Medication Instructions Recorded Last Taken Type Calcium Carbonate + Vitamin D 500 mg PO BID 10/29/14 08/25/16 History [Oscal with Vitamin D] Fe Fum/Vit E AC/Vit Bcomp&C/Mn 1 tab PO QHS 10/29/14 08/24/16 History [B-50 Formula Tablet] Gabapentin [Neurontin] 300 mg PO TID 10/29/14 08/25/16 History Losartan Potassium [Cozaar] 50 mg PO DAILY 10/29/14 08/25/16 History [place]-3 Fatty Acids/Fish Oil [Fish 1,000 mg PO BID 10/29/14 08/25/16 History Oil 1,000 mg Capsule] Spironolactone [Aldactone] 25 mg PO DAILY 10/29/14 08/25/16 History Apixaban [Eliquis] 2.5 mg PO BID 08/25/16 08/25/16 History Furosemide [Lasix] 20 mg PO BID 08/25/16 08/25/16 History Height and Weight Patient's height 5 ft 6 in Patient's weight 76.249 kg Weight (Calculated Kilograms) 76.249 BMI 27.1 Vital Signs Temperature 98.6 F 08/27/16 05:43 Pulse Rate 59 L 08/27/16 05:43 Respiratory Rate 18 08/27/16 05:43 Blood Pressure 121/47 L 08/27/16 05:43 Pulse Oxygen Saturation 95 08/27/16 05:43 - Anesthetic Plan Anesthesia Type: General ASA Class: 3, E -: I have examined this patient and reviewed the medical record. The patient has been assessed prior to anesthesia. Risks and benefits of anesthesia and anesthetic technique options have been discussed and all questions answered. The patient accepts the risk and desires me to proceed with the planned anesthetic.
[2016-08-27] MEDS: FUROSEMIDE 20 MG TAB PO SCH ×2 (07:27→15:35)
[2016-08-27] MEDS ORDERED: BUPIVACAINE 0.25%-EPINEPHRINE 1:200,000 30 ML ONE (07:51)
[2016-08-27 08:07] LABS: AUTOMATED BASOPHIL 0.2 % (0-2); AUTOMATED EOSINOPHIL 0.1 % (0-5); AUTOMATED LYMPH 8.1 % (17-44); AUTOMATED MONOCYTE 4.6 % (3-10); MPV 9.4 fL (7.4-10.4)
[2016-08-27 08:16] LABS: BLOOD UREA NITROGEN 22 MG/DL (7-17); CALC CORRECTED 9.3 MG/DL (8.4-10.2); CALCIUM 8.5 MG/DL (8.4-10.2); CALCULATED OSMOLALITY 266 MOs/Kg (270-290); CHLORIDE 97 mEq/L (98-107); GLUCOSE 120 MG/DL (70-99); SODIUM LEVEL 136 mEq/L (137-146); TOTAL PROTEIN 6.5 G/DL (6.3-8.2)
[2016-08-27] MEDS: LOSARTAN POTASSIUM 50 MG TAB PO SCH (09:36)
[2016-08-27] MEDS: SPIRONOLACTONE 25 MG TAB PO SCH (09:36)
[2016-08-27] MEDS: OMEGA-3-ACID ETHYL ESTERS 1000 MG CAP PO SCH ×2 (09:36→22:02)
--- NOTE | 2016-08-27 09:49 | SC.ANESPOS ---
Post-Anesthesia Note LOC: Fully Awake Post-Anesthesia Assessment: Awake, Returned to Baseline, Hemodynamically Stable , Pain Control Adequate Phase I & II Recovery Complete: Yes Apparent Anesthesia Complication: No : N PACU Discharge Time: 17:46 - Vital Signs Blood Pressure: 180/79 Pulse: 54 Resp Rate: 16 O2 Sat: 97 Temp: 97.6 F - Comments Anesthesia Discharge Time Report Time 17:46
[2016-08-27] MEDS ORDERED: SODIUM CHLORIDE 0.9% 3 ML FLUSH FLUSH PRN (09:54)
--- NOTE | 2016-08-27 09:59 | HIMOPRPT ---
DATE OF PROCEDURE: 08/27/16 PREOPERATIVE DIAGNOSIS: Acute appendicitis, abdominal pain. POSTOPERATIVE DIAGNOSIS: Acute appendicitis, abdominal pain, abscess with perforation. PROCEDURE: Laparoscopic appendectomy. SURGEON: Brijesh Villegas MD PRECISION LENS GRINDER: None ANESTHESIA: General Anesthesia. ESTIMATED BLOOD LOSS: Minimal COMPLICATIONS: None noted. ANTIBIOTICS: Preoperative antibiotics given. INDICATIONS: SANTO NUNN is a 89 year-old F patient. She had been found to have appendicitis. We had to wait for her Eliquis to wear off and had her on triple ABX. I explained the risks and benefits of surgery including the risk of infection, bleeding, and anesthesia. We explained all this in detail and brought the patient for the above-mentioned procedure. PROCEDURE IN DETAIL: The patient was brought to the operating room and placed on the operating room table in supine position. After identification of the site , was given adequate amount of general anesthesia, then prepped and draped in sterile manner. When given okay by anesthesia, after appropriate time-out, an Optiview trocar was placed on umbilicus in usual manner without any problems. Abdomen was insufflated to 15 mmHg pressure with CO2 gas, and the patient was positioned. Two other trocars were placed under direct vision. The appendix was acutely inflamed and perforated. There was purulent fluid. We went ahead, culured the abscess then irrigated out the abdomen till the irrigation was clear , and then went ahead, grabbed the appendix, took down the mesoappendix with harmonic scalpel dissection. Part of thevappendix was not attached because of the perforation and blowout. So, we went ahead at that point, dissected the base of the cecum to get back to normal cecum and placed a GI surgical stapler across the base of the appendix in order to close the defect. This was done without any difficulties, and the pieces of the appendix were then added into an Endopouch and removed without any problems. The abdomen was then reinsufflated. Abdomen was irrigated with copious amounts of saline, suctioned dry. Hemostasis assured. The staple line was hemostatic. A BRETT drain was placed in the plevis. We had irrigated till the irrigation was clear, and at that point, we removed the trocars. We went ahead, placing #1 Vicryl at the 12-mm trocar site and then deflated the abdomen. All wounds were irrigated and brought together with surgical clips. The patient was awoken, taken to recovery room in excellent condition with correct sponge counts and needle counts.
[2016-08-27] MEDS ORDERED: NEOSTIGMINE 1 MG/1 ML (1:1000) INJ 10 ML MDV IM ONE (10:00)
[2016-08-27] MEDS ORDERED: SODIUM CHLORIDE 0.9% 3 ML FLUSH FLUSH SCH (10:00)
[2016-08-27] MEDS ORDERED: ETOMIDATE 20 MG/10 ML VIAL IV ONE (10:00)
[2016-08-27] MEDS ORDERED: FENTANYL 100 MCG/2 ML VIAL IV ONE (10:00)
[2016-08-27] MEDS ORDERED: LIDOCAINE 100 MG PFS IV ONE (10:00)
[2016-08-27] MEDS ORDERED: GLYCOPYRROLATE 1 MG VIAL IM ONE (10:00)
[2016-08-27] MEDS ORDERED: ROCURONIUM 50 MG/5 ML VIAL IV ONE (10:00)
[2016-08-27] MEDS: CALCIUM CARBONATE + VITAMIN D 500 MG TAB PO SCH ×2 (11:22→18:35)
[2016-08-27] MEDS: VITS,MINERALS,IRON TAB PO SCH (11:22)
--- NOTE | 2016-08-27 13:02 | GENMEDPROG ---
Chief Complaint: Doing well. Minimal pain. No chest pain or shortness of breath. Notes Reviewed: Yes Events from last night noted and discussed with Clinical Staff Current Medication List: Reviewed Currently: Reports: Abdominal Pain. Denies: Cough, Wheezing, NUNEZ, SOB, Sputum, Nausea and Vomiting DVT Prophylaxis: Yes - Physical Examination Vital Signs and I&O: Last Vital Signs Temp 98.2 F 08/27/16 12:05 Pulse 48 L 08/27/16 12:05 Resp 20 08/27/16 12:05 BP 122/50 L 08/27/16 12:05 Pulse Ox 95 08/27/16 12:05 Oxygen Pulse Oxygen Saturation 95 O2 Device Nasal Cannula Oxygen Flow Rate 2 Fraction of Inspired Oxygen ( 100 FIO2) Intake & Output 08/24/16 08/25/16 08/26/16 08/27/16 23:59 23:59 23:59 23:59 Intake Total 600 1118 854 Output Total 1000 805 Balance 600 118 49 Patient's weight 75.523 kg 76.249 kg General: Alert, Oriented x3, Cooperative, Well appearing, Well nourished HEENT: Normal, PERRLA, EOMI Neck: Non-tender, Full range of motion, Normal Trachea alignment, Normal inspection. negative: Tender midline, JVD Lymphatics: Normal (no adenopathy) Respiratory: Normal - CTA (BBS clear to auscultation without adventitious sounds ) Cardiovascular: Regular rate and rhythm, No Gallops,Rubs/Murmurs GI: Normal bowel sounds, Soft, Non tender, No hepatospenomegaly Extremities/Musculoskeletal: Normal pulses. negative: Tenderness, Swelling, Edema Skin: Warm,Dry and Intact, No rashes, No breakdown, No significant lesion Neurological: Normal Steady Gait, Normal speech, Strength at 5/5 X4 ext, Normal tone, Cranial nerves 3-12 NL Psych/Mental Status: Appropriate, Normal Affect, Cooperative Lab/DI/Studies Reviewed: Laboratory Results - last 24 hr 08/27/16 08/27/16 08/27/16 05:46 06:41 06:41 WBC 14.5 H RBC 3.86 L Hgb 12.3 Hct 36.9 MCV 96 MCH 31.8 MCHC 33.3 RDW 13.1 Plt Count 170 MPV 9.4 Neut % (Auto) 87.0 H Lymph % (Auto) 8.1 L [place] % (Auto) 4.6 Eos % (Auto) 0.1 Baso % (Auto) 0.2 Absolute Neuts (auto) 12.62 H Absolute Lymphs (auto) 1.16 Sodium 136 L Potassium 4.5 Chloride 97 L Carbon Dioxide 29 Anion Gap 15 BUN 22 H Creatinine 1.00 Estimated GFR (MDRD) 52 L Glucose 120 H POC Capillary Glucose 111 H Calculated Osmolality 266 L Calcium 8.5 Corrected Calcium 9.3 Total Bilirubin 1.4 H AST 36 ALT 34 Alkaline Phosphatase 71 Total Protein 6.5 Albumin 3.2 L - Assessment (1) Acute appendicitis Acute K35.80 - UNSPECIFIED ACUTE APPENDICITIS Qualifiers: Acute appendicitis type: unspecified acute appendicitis type Comment/Plan: Status post laparoscopic appendectomy. Doing well. Further management per Dr. Villegas (2) Abdominal pain Acute R10.9 - UNSPECIFIED ABDOMINAL PAIN Qualifiers: Abdominal location: right lower quadrant Qualified Code(s): R10.31 - Right lower quadrant pain Comment/Plan: Status post appendectomy. P.r.n. analgesics (3) Current use of longterm anticoagulation Acute Z79.01 - SECURITY FLEX OFFICER (CURRENT) USE OF ANTICOAGULANTS Comment/Plan: Holding Eliquis for surgery. Restart when stable from surgery standpoint given long history of chronic AFib. (4) Dehydration Acute E86.0 - DEHYDRATION Comment/Plan: Resolved. Discontinue IV fluids (5) Hypertension Acute I10 - ESSENTIAL (PRIMARY) HYPERTENSION Qualifiers: Hypertension type: essential hypertension Qualified Code(s): I10 - Essential (primary) hypertension Comment/Plan: Continue medications, control pain. Monitor Case Care Discussed with: Patient, Nursing Staff, Resource Management
[2016-08-27] MEDS: SODIUM CHLORIDE 0.9% 3 ML FLUSH FLUSH SCH (18:37)
[2016-08-28] MEDS: PIPERACILLIN AND TAZOBACTAM 3.375 GM in D5W 100 ML IV SCH ×5 (00:27→23:53)
[2016-08-28] MEDS: ACETAMINOPHEN 325 MG/TAB TABLET PO PRN (02:33)
[2016-08-28] MEDS: GENTAMICIN IV SCH (03:55)
[2016-08-28] MEDS: NS IV SCH (03:55)
[2016-08-28] MEDS: SODIUM CHLORIDE 0.9% 3 ML FLUSH FLUSH SCH ×2 (05:40→17:31)
[2016-08-28] MEDS: GABAPENTIN 300 MG CAP PO SCH ×3 (05:40→21:58)
[2016-08-28 07:23] LABS: AUTOMATED BASOPHIL 0.1 % (0-2); AUTOMATED EOSINOPHIL 0.5 % (0-5); AUTOMATED LYMPH 11.7 % (17-44); AUTOMATED NEUTROPHIL 79.7 % (45-76); MPV 9.3 fL (7.4-10.4)
[2016-08-28 07:43] LABS: BLOOD UREA NITROGEN 15 MG/DL (7-17); CALC CORRECTED 9.9 MG/DL (8.4-10.2); CALCIUM 8.3 MG/DL (8.4-10.2); CALCULATED OSMOLALITY 258 MOs/Kg (270-290); CHLORIDE 97 mEq/L (98-107); GLUCOSE 110 MG/DL (70-99); SODIUM LEVEL 133 mEq/L (137-146); TOTAL PROTEIN 5.3 G/DL (6.3-8.2)
[2016-08-28] MEDS: OMEGA-3-ACID ETHYL ESTERS 1000 MG CAP PO SCH ×2 (07:48→21:58)
[2016-08-28] MEDS: LOSARTAN POTASSIUM 50 MG TAB PO SCH (07:48)
[2016-08-28] MEDS: SPIRONOLACTONE 25 MG TAB PO SCH (07:48)
[2016-08-28] MEDS: FUROSEMIDE 20 MG TAB PO SCH ×2 (07:48→14:58)
[2016-08-28] MEDS: VITS,MINERALS,IRON TAB PO SCH (11:23)
[2016-08-28] MEDS: CALCIUM CARBONATE + VITAMIN D 500 MG TAB PO SCH ×2 (11:23→17:31)
--- NOTE | 2016-08-28 13:49 | PCM.SURGRO ---
- Subjective Patient: Reports: No new complaints, Feels better, Pain is less - Objective / Physical Exam Vital Signs: Temperature: 97.8 F (08/28/16 10:20) HR: 55 (08/28/16 10:20)RR: 20 (08/28/16 10: 20) BP: 102/46 (08/28/16 10:20)Pulse Ox: 96 (08/28/16 10:20) General: Alert, Oriented x3, Cooperative HEENT: Normal, PERRLA, EOMI Respiratory: Normal - CTA Cardiovascular: Regular rate Gastrointestinal: Soft, Bowel Sounds, Tender (Mild as expect after surgery.). negative: Distended Extremities: negative: Tenderness, Swelling, Edema, Clubbing, Cyanosis Neurological: Strength at 5/5 X4 ext, Cranial nerves 3-12 NL - Assessment and Plan (1) Acute appendicitis Acute K35.80 - UNSPECIFIED ACUTE APPENDICITIS Present on Admission: Yes unspecified acute appendicitis type K35.80 - Unspecified acute appendicitis Comment/Plan: Improved. Continue ABx and await bowel function since had abscess with perforation. (2) Deep vein thrombosis, lower left extremity Acute I82.402 - ACUTE EMBOLISM AND THOMBOS UNSP DEEP VEINS OF L LOW EXTREM (3) Pulmonary embolism Acute I26.99 - OTHER PULMONARY EMBOLISM WITHOUT ACUTE COR PULMONALE (4) Abdominal pain Acute R10.9 - UNSPECIFIED ABDOMINAL PAIN right lower quadrant R10.31 - Right lower quadrant pain
--- NOTE | 2016-08-28 13:59 | GENMEDPROG ---
Chief Complaint: Doing well with no complaints. Awaiting return of bowel function. Notes Reviewed: Yes Events from last night noted and discussed with Clinical Staff Current Medication List: Reviewed Currently: Reports: Abdominal Pain. Denies: Cough, Wheezing, NUNEZ, SOB, Sputum, Nausea and Vomiting DVT Prophylaxis: Yes - Physical Examination Vital Signs and I&O: Last Vital Signs Temp 97.8 F 08/28/16 10:20 Pulse 55 L 08/28/16 10:20 Resp 20 08/28/16 10:20 BP 102/46 L 08/28/16 10:20 Pulse Ox 96 08/28/16 10:20 Oxygen Pulse Oxygen Saturation 96 O2 Device Nasal Cannula Oxygen Flow Rate 1 Fraction of Inspired Oxygen ( 100 FIO2) Intake & Output 08/25/16 08/26/16 08/27/16 08/28/16 23:59 23:59 23:59 23:59 Intake Total 600 1118 1021 840 Output Total 1000 1205 725 Balance 600 118 -184 115 Patient's weight 75.523 kg 76.249 kg 76.374 kg General: Alert, Oriented x3, Cooperative HEENT: Normal, PERRLA, EOMI Neck: Non-tender, Full range of motion, Normal Trachea alignment. negative: JVD Lymphatics: Normal. negative: Adenopathy Respiratory: Normal - CTA Cardiovascular: Regular rate, Regular rate and rhythm, No Gallops,Rubs/Murmurs GI: Soft, Tenderness. negative: Normal bowel sounds Extremities/Musculoskeletal: Normal pulses. negative: Tenderness, Swelling, Edema, Clubbing, Cyanosis Skin: Warm,Dry and Intact, No rashes, No breakdown, No significant lesion Neurological: Normal speech, Strength at 5/5 X4 ext, Normal tone, Cranial nerves 3-12 NL, Reflexes 2+ Psych/Mental Status: Appropriate, Normal Affect, Cooperative Lab/DI/Studies Reviewed: Laboratory Results - last 24 hr 08/28/16 08/28/16 06:20 06:20 WBC 9.7 RBC 3.59 L Hgb 11.4 L Hct 34.2 L MCV 95 MCH 31.8 MCHC 33.4 RDW 13.2 Plt Count 132 MPV 9.3 Neut % (Auto) 79.7 H Lymph % (Auto) 11.7 L Fannin % (Auto) 8.0 Eos % (Auto) 0.5 Baso % (Auto) 0.1 Absolute Neuts (auto) 7.66 Absolute Lymphs (auto) 1.07 Sodium 133 L Potassium 4.0 Chloride 97 L Carbon Dioxide 30 Anion Gap 10 BUN 15 Creatinine 0.90 Estimated GFR (MDRD) 59 L Glucose 110 H Calculated Osmolality 258 L Calcium 8.3 L Corrected Calcium 9.9 Total Bilirubin 0.8 AST 31 ALT 36 Alkaline Phosphatase 64 Total Protein 5.3 L Albumin 2.4 L - Assessment (1) Acute appendicitis Acute K35.80 - UNSPECIFIED ACUTE APPENDICITIS Qualifiers: Acute appendicitis type: unspecified acute appendicitis type Comment/Plan: Status post laparoscopic appendectomy. Doing well. Further management per Dr. Villegas (2) Abdominal pain Acute R10.9 - UNSPECIFIED ABDOMINAL PAIN Qualifiers: Abdominal location: right lower quadrant Qualified Code(s): R10.31 - Right lower quadrant pain Comment/Plan: Status post appendectomy. P.r.n. analgesics (3) Current use of prison anticoagulation Acute Z79.01 - [employer] (CURRENT) USE OF ANTICOAGULANTS Comment/Plan: Holding Eliquis for surgery. Restart when stable from surgery standpoint given long history of chronic AFib. (4) Dehydration Acute E86.0 - DEHYDRATION Comment/Plan: Resolved. Discontinue IV fluids (5) Hypertension Acute I10 - ESSENTIAL (PRIMARY) HYPERTENSION Qualifiers: Hypertension type: essential hypertension Qualified Code(s): I10 - Essential (primary) hypertension Comment/Plan: Continue medications, control pain. Monitor Case Care Discussed with: Patient, Consultants, Nursing Staff, Resource Management
[2016-08-29] MEDS: ONDANSETRON HCL 4 MG/2 ML VIAL IV PRN (02:04)
[2016-08-29] MEDS: PIPERACILLIN AND TAZOBACTAM 3.375 GM in D5W 100 ML IV SCH ×4 (05:28→23:59)
[2016-08-29] MEDS: SODIUM CHLORIDE 0.9% 3 ML FLUSH FLUSH SCH ×2 (05:30→17:16)
[2016-08-29] MEDS: GABAPENTIN 300 MG CAP PO SCH ×3 (05:30→20:16)
[2016-08-29] MEDS: FUROSEMIDE 20 MG TAB PO SCH ×2 (08:02→17:22)
[2016-08-29] MEDS: LOSARTAN POTASSIUM 50 MG TAB PO SCH (08:02)
[2016-08-29] MEDS: SPIRONOLACTONE 25 MG TAB PO SCH (08:02)
[2016-08-29] MEDS: OMEGA-3-ACID ETHYL ESTERS 1000 MG CAP PO SCH ×2 (08:02→20:15)
[2016-08-29 08:17] LABS: BLOOD UREA NITROGEN 19 MG/DL (7-17); CALCIUM 8.9 MG/DL (8.4-10.2); CALCULATED OSMOLALITY 260 MOs/Kg (270-290); CHLORIDE 91 mEq/L (98-107); GLUCOSE 151 MG/DL (70-99); SODIUM LEVEL 132 mEq/L (137-146)
--- NOTE | 2016-08-29 08:38 | PCM.SURGRO ---
- Subjective Patient: Reports: Pain is less, Bowel Movement, Vomiting - Objective / Physical Exam Vital Signs: Temperature: 98.6 F (08/29/16 04:45) HR: 61 (08/29/16 04:45)RR: 18 (08/29/16 04: 45) BP: 174/78 (08/29/16 04:45)Pulse Ox: 94 (08/29/16 04:45) General: Alert, Oriented x3, Cooperative HEENT: Normal, PERRLA, EOMI Respiratory: negative: Diminished, Rhonchi Cardiovascular: Regular rate Gastrointestinal: Soft, Bowel Sounds, Tender (Mild as expected.). negative: Distended Extremities: negative: Tenderness, Swelling, Edema, Clubbing, Cyanosis Psych/Mental Status: Appropriate, Cooperative Neurological: Strength at 5/5 X4 ext, Cranial nerves 3-12 NL Surgical wound: Clean/Dry - Assessment and Plan (1) Acute appendicitis Acute K35.80 - UNSPECIFIED ACUTE APPENDICITIS Present on Admission: Yes unspecified acute appendicitis type K35.80 - Unspecified acute appendicitis Comment/Plan: Doing better. Still needs time for ABx do control infection. Continue ambulation, clears. Continue ABx. Restart apixaban. (2) Deep vein thrombosis, lower left extremity Acute I82.402 - ACUTE EMBOLISM AND THOMBOS UNSP DEEP VEINS OF L LOW EXTREM (3) Pulmonary embolism Acute I26.99 - OTHER PULMONARY EMBOLISM WITHOUT ACUTE COR PULMONALE (4) Abdominal pain Acute R10.9 - UNSPECIFIED ABDOMINAL PAIN right lower quadrant R10.31 - Right lower quadrant pain
[2016-08-29] MEDS: APIXABAN 5 MG TABLET PO SCH ×2 (09:25→20:15)
--- NOTE | 2016-08-29 10:29 | GENMEDPROG ---
Chief Complaint: Mild pain and discomfort. She did have a bowel movement last night. Still feels sick. Notes Reviewed: Yes Events from last night noted and discussed with Clinical Staff Current Medication List: Reviewed Currently: Reports: Abdominal Pain. Denies: Cough, Wheezing, NUNEZ, SOB, Sputum, Nausea and Vomiting DVT Prophylaxis: Yes - Physical Examination Vital Signs and I&O: Last Vital Signs Temp 98.6 F 08/29/16 04:45 Pulse 80 08/29/16 08:00 Resp 18 08/29/16 04:45 BP 174/78 08/29/16 04:45 Pulse Ox 95 08/29/16 08:00 Oxygen Pulse Oxygen Saturation 95 O2 Device Nasal Cannula Oxygen Flow Rate 1 Fraction of Inspired Oxygen ( 100 FIO2) Intake & Output 08/26/16 08/27/16 08/28/16 08/29/16 23:59 23:59 23:59 23:59 Intake Total 1118 1021 1342 581 Output Total 1000 1205 1310 350 Balance 118 -184 32 231 Patient's weight 75.523 kg 76.249 kg 76.374 kg 76.232 kg General: Alert, Oriented x3, Cooperative HEENT: Normal, PERRLA, EOMI Neck: Non-tender, Full range of motion, Normal Trachea alignment, Normal inspection. negative: JVD Lymphatics: Normal. negative: Adenopathy Respiratory: negative: Diminished, Rhonchi Cardiovascular: Regular rate, Regular rate and rhythm, No Gallops,Rubs/Murmurs GI: Soft, No hepatospenomegaly, No masses, Tenderness Extremities/Musculoskeletal: negative: Tenderness, Swelling, Edema, Clubbing, Cyanosis Skin: Warm,Dry and Intact, No rashes, No breakdown, No significant lesion Neurological: Normal speech, Strength at 5/5 X4 ext, Normal tone, Cranial nerves 3-12 NL Psych/Mental Status: Appropriate, Cooperative Lab/DI/Studies Reviewed: Laboratory Results - last 24 hr 08/29/16 06:55 Sodium 132 L Potassium 4.0 Chloride 91 L Carbon Dioxide 31 Anion Gap 14 BUN 19 H Creatinine 0.90 Estimated GFR (MDRD) 59 L Glucose 151 H Calculated Osmolality 260 L Calcium 8.9 - Assessment (1) Acute appendicitis Acute K35.80 - UNSPECIFIED ACUTE APPENDICITIS Qualifiers: Acute appendicitis type: unspecified acute appendicitis type Comment/Plan: Status post laparoscopic appendectomy. Doing well. Further management per Dr. Villegas. Encourage activity and diet as tolerated (2) Abdominal pain Acute R10.9 - UNSPECIFIED ABDOMINAL PAIN Qualifiers: Abdominal location: right lower quadrant Qualified Code(s): R10.31 - Right lower quadrant pain Comment/Plan: Status post appendectomy. P.r.n. 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 (4) Dehydration Acute E86.0 - DEHYDRATION Comment/Plan: Resolved. Discontinue IV fluids (5) Hypertension Acute I10 - ESSENTIAL (PRIMARY) HYPERTENSION Qualifiers: Hypertension type: essential hypertension Qualified Code(s): I10 - Essential (primary) hypertension Comment/Plan: Continue medications, control pain. Monitor Case Care Discussed with: Patient, Nursing Staff, Physical Therapy, Resource Management, Swat Team Member
[2016-08-29] MEDS: VITS,MINERALS,IRON TAB PO SCH (11:08)
[2016-08-29] MEDS: CALCIUM CARBONATE + VITAMIN D 500 MG TAB PO SCH ×2 (11:08→17:16)
[2016-08-29] MEDS: GENTAMICIN IV SCH (17:15)
[2016-08-29] MEDS: NS IV SCH (17:15)
[2016-08-29] MEDS: PANTOPRAZOLE 40 MG TAB PO SCH (17:16)
[2016-08-29] MEDS ORDERED: NS 500 ML IV ONE (18:38)
[2016-08-30] MEDS: PANTOPRAZOLE 40 MG TAB PO SCH ×2 (05:26→17:55)
[2016-08-30] MEDS: PIPERACILLIN AND TAZOBACTAM 3.375 GM in D5W 100 ML IV SCH ×4 (05:26→23:50)
[2016-08-30] MEDS: GABAPENTIN 300 MG CAP PO SCH ×3 (05:26→20:50)
[2016-08-30] MEDS: SODIUM CHLORIDE 0.9% 3 ML FLUSH FLUSH SCH ×2 (05:26→17:56)
[2016-08-30 07:45] LABS: BLOOD UREA NITROGEN 18 MG/DL (7-17); CALCIUM 8.7 MG/DL (8.4-10.2); CALCULATED OSMOLALITY 260 MOs/Kg (270-290); CHLORIDE 88 mEq/L (98-107); GLUCOSE 151 MG/DL (70-99); SODIUM LEVEL 132 mEq/L (137-146)
[2016-08-30] MEDS: FUROSEMIDE 20 MG TAB PO SCH ×2 (09:36→17:55)
[2016-08-30] MEDS: OMEGA-3-ACID ETHYL ESTERS 1000 MG CAP PO SCH ×2 (09:36→20:50)
[2016-08-30] MEDS: LOSARTAN POTASSIUM 50 MG TAB PO SCH (09:36)
[2016-08-30] MEDS: APIXABAN 5 MG TABLET PO SCH ×2 (09:36→20:50)
[2016-08-30] MEDS: SPIRONOLACTONE 25 MG TAB PO SCH (09:36)
--- NOTE | 2016-08-30 11:16 | PCM.SURGRO ---
- Subjective Patient: Reports: No new complaints, Other (Still with reflux symptoms.) - Objective / Physical Exam Vital Signs: Temperature: 98.6 F (08/30/16 04:51) HR: 62 (08/30/16 09:32)RR: 18 (08/30/16 04: 51) BP: 142/74 (08/30/16 09:32)Pulse Ox: 98 (08/30/16 09:32) General: Alert, Oriented x3, Cooperative HEENT: Normal, PERRLA, EOMI Respiratory: Normal - CTA Cardiovascular: Regular rate Gastrointestinal: Soft, Distended (Mild.), Bowel Sounds (Few.), Tender (Mild.) Extremities: negative: Tenderness, Swelling, Edema, Clubbing, Cyanosis Psych/Mental Status: Appropriate, Cooperative Neurological: Strength at 5/5 X4 ext, Cranial nerves 3-12 NL - Assessment and Plan (1) Acute appendicitis Acute K35.80 - UNSPECIFIED ACUTE APPENDICITIS Present on Admission: Yes unspecified acute appendicitis type K35.80 - Unspecified acute appendicitis Comment/Plan: Doing well after lap appy for perforated appendix. Continue abx and wait for bowel function to improve. (2) Deep vein thrombosis, lower left extremity Acute I82.402 - ACUTE EMBOLISM AND THOMBOS UNSP DEEP VEINS OF L LOW EXTREM (3) Pulmonary embolism Acute I26.99 - OTHER PULMONARY EMBOLISM WITHOUT ACUTE COR PULMONALE (4) Abdominal pain Acute R10.9 - UNSPECIFIED ABDOMINAL PAIN right lower quadrant R10.31 - Right lower quadrant pain
[2016-08-30] MEDS: CALCIUM CARBONATE + VITAMIN D 500 MG TAB PO SCH ×2 (11:43→17:55)
[2016-08-30] MEDS: VITS,MINERALS,IRON TAB PO SCH (11:43)
--- NOTE | 2016-08-30 14:25 | GENMEDPROG ---
Subjective Note: Patient in bed responsive follows commands. Still fair amount of abdominal pain and distention. Reports indigestion occasion nausea but denies and vomiting. Passing flatus, having bowel movement since surgery. Denies and difficulties breathing cough phlegm production. Notes Reviewed: Yes Events from last night noted and discussed with Clinical Staff Current Medication List: Reviewed Currently: Reports: NUNEZ, Reflux Sx, Abdominal Pain. Denies: Cough, Wheezing, SOB, Sputum, Nausea and Vomiting DVT Prophylaxis: Yes - Physical Examination Vital Signs and I&O: Last Vital Signs Temp 98.4 F 08/30/16 13:35 Pulse 67 08/30/16 13:35 Resp 18 08/30/16 13:35 BP 151/71 08/30/16 13:35 Pulse Ox 96 08/30/16 13:35 Oxygen Pulse Oxygen Saturation 96 O2 Device Nasal Cannula Oxygen Flow Rate 1.5 Fraction of Inspired Oxygen ( 100 FIO2) Intake & Output 08/27/16 08/28/16 08/29/16 08/30/16 23:59 23:59 23:59 23:59 Intake Total 1021 1342 1497 354 Output Total 1205 1310 585 400 Balance -184 32 912 -46 Patient's weight 76.249 kg 76.374 kg 76.232 kg 77.224 kg General: Alert, Oriented x3, Cooperative, No acute distress HEENT: Normal, PERRLA, EOMI, Anicteric Sclera Neck: Non-tender, Normal Trachea alignment, Limited range of motion Lymphatics: Normal Respiratory: Normal - CTA, Diminished, Rhonchi Cardiovascular: Regular rate, Normal S1, Normal S2, Murmurs GI: Soft, No hepatospenomegaly, No masses, Obese, Tenderness Extremities/Musculoskeletal: Edema, Cyanosis, DJD. negative: Tenderness, Swelling, Clubbing Skin: Warm,Dry and Intact, No rashes, No breakdown, No significant lesion Neurological: Normal speech, Normal tone, Cranial nerves 3-12 NL Psych/Mental Status: Appropriate, Cooperative Lab/DI/Studies Reviewed: Allergies lisinopril Allergy (Severe, Verified 08/25/16 16:46) ANGIOEDEMA nabumetone [From Relafen] Allergy (Severe, Verified 08/25/16 16:46) SWELLINMG lorazepam Adverse Reaction (Verified 08/25/16 16:46) See Comments Patient could not tolerate Lorazepam, it made her extremely 'loopy' and she said she would not like to take it ever again. 08/28/16 06:20 08/30/16 06:20 Abnormal Lab Results 08/30/16 06:20 Sodium 132 L Chloride 88 L Carbon Dioxide 35 H BUN 18 H Glucose 151 H Calculated Osmolality 260 L Microbiology 08/28/16 16:20 Sputum Gram Stain - Final 08/28/16 16:20 Sputum Sputum Culture - Final Normal oral/respiratory yulia present 08/26/16 00:05 Urine - Clean Catch - Midstream Urine Culture - Final Mixed skin/vaginal contaminants Microbiology 08/28/16 16:20 Sputum Gram Stain - Final 08/28/16 16:20 Sputum Sputum Culture - Final Normal oral/respiratory yulia present - Assessment (1) Acute appendicitis Acute K35.80 - UNSPECIFIED ACUTE APPENDICITIS Qualifiers: Acute appendicitis type: unspecified acute appendicitis type Qualified Code (s): K35.80 - Unspecified acute appendicitis Comment/Plan: Status post surgery, recovering well. Continue postop care. Drain in place. (2) Peritonitis Acute K65.9 - PERITONITIS, UNSPECIFIED Comment/Plan: Continue IV antibiotics , cultures growing corynebacterium (3) Pulmonary embolism Acute I26.99 - OTHER PULMONARY EMBOLISM WITHOUT ACUTE COR PULMONALE Qualifiers: Pulmonary embolism type: other Chronicity: chronic Acute cor pulmonale presence: without acute cor pulmonale Qualified Code(s): I27.82 - Chronic pulmonary embolism Comment/Plan: Continue liquids. (4) Dehydration Acute E86.0 - DEHYDRATION Comment/Plan: Continue IV fluids (5) GERD (gastroesophageal reflux disease) Acute K21.9 - GASTRO-ESOPHAGEAL REFLUX DISEASE WITHOUT ESOPHAGITIS Qualifiers: Esophagitis presence: without esophagitis Qualified Code(s): K21.9 - Gastro -esophageal reflux disease without esophagitis Comment/Plan: Continue PPI (6) Hypertension Acute I10 - ESSENTIAL (PRIMARY) HYPERTENSION Qualifiers: Hypertension type: essential hypertension Qualified Code(s): I10 - Essential (primary) hypertension Comment/Plan: Continue medications, control pain. Monitor (7) Dyslipidemia Chronic E78.5 - HYPERLIPIDEMIA, UNSPECIFIED Comment/Plan: Continue medications Case Care Discussed with: Patient, Consultants, Family, Nursing Staff, Dispatcher Street Department Education/Counseling Given To: Patient Education/Counseling Given Regarding: Diagnosis, Treatment, Prognosis, Follow Up Total Time: 45 min . Critical Care: No Code: 43487 (12+)
[2016-08-30] MEDS: PROBIOTIC BLEND TAB PO SCH (17:55)
[2016-08-31] MEDS: NS IV SCH (03:38)
[2016-08-31] MEDS: GENTAMICIN IV SCH (03:38)
[2016-08-31] MEDS: ONDANSETRON HCL 4 MG/2 ML VIAL IV PRN (03:38)
[2016-08-31] MEDS: PANTOPRAZOLE 40 MG TAB PO SCH ×2 (06:00→17:56)
[2016-08-31] MEDS: PIPERACILLIN AND TAZOBACTAM 3.375 GM in D5W 100 ML IV SCH ×4 (06:00→23:50)
[2016-08-31] MEDS: SODIUM CHLORIDE 0.9% 3 ML FLUSH FLUSH SCH ×2 (06:01→17:56)
[2016-08-31] MEDS: GABAPENTIN 300 MG CAP PO SCH ×3 (06:01→22:01)
[2016-08-31 07:22] LABS: BLOOD UREA NITROGEN 19 MG/DL (7-17); CALCIUM 8.9 MG/DL (8.4-10.2); CALCULATED OSMOLALITY 257 MOs/Kg (270-290); CHLORIDE 87 mEq/L (98-107); GLUCOSE 93 MG/DL (70-99); SODIUM LEVEL 132 mEq/L (137-146)
[2016-08-31] MEDS: OMEGA-3-ACID ETHYL ESTERS 1000 MG CAP PO SCH ×2 (09:14→22:01)
[2016-08-31] MEDS: APIXABAN 5 MG TABLET PO SCH ×2 (09:14→22:01)
[2016-08-31] MEDS: LOSARTAN POTASSIUM 50 MG TAB PO SCH (09:14)
[2016-08-31] MEDS: SPIRONOLACTONE 25 MG TAB PO SCH (09:14)
[2016-08-31] MEDS: FUROSEMIDE 20 MG TAB PO SCH ×2 (09:14→17:55)
[2016-08-31] MEDS: CALCIUM CARBONATE + VITAMIN D 500 MG TAB PO SCH ×2 (11:39→17:56)
[2016-08-31] MEDS: PROBIOTIC BLEND TAB PO SCH ×2 (11:39→17:56)
[2016-08-31] MEDS: VITS,MINERALS,IRON TAB PO SCH (11:39)
--- NOTE | 2016-08-31 12:27 | PCM.SURGRO ---
- Subjective Patient: Reports: No new complaints, Feels better, Other (Reflux.) - Objective / Physical Exam Vital Signs: Temperature: 98.4 F (08/31/16 06:00) HR: 62 (08/31/16 09:10)RR: 16 (08/31/16 06: 00) BP: 121/54 (08/31/16 09:10)Pulse Ox: 96 (08/31/16 09:10) General: Alert, Oriented x3, Cooperative HEENT: Normal, PERRLA, EOMI Respiratory: Normal - CTA Cardiovascular: Regular rate Gastrointestinal: Soft, Distended (Mild.), Bowel Sounds, Tender (Mild as expect after surgery.) Extremities: negative: Tenderness, Swelling, Edema, Clubbing, Cyanosis Psych/Mental Status: Appropriate, Cooperative - Assessment and Plan (1) Acute appendicitis Acute K35.80 - UNSPECIFIED ACUTE APPENDICITIS Present on Admission: Yes unspecified acute appendicitis type K35.80 - Unspecified acute appendicitis Comment/Plan: Slowly improving. Needs better bowel function prior to advancing diet. (2) Deep vein thrombosis, lower left extremity Acute I82.402 - ACUTE EMBOLISM AND THOMBOS UNSP DEEP VEINS OF L LOW EXTREM (3) Pulmonary embolism Acute I26.99 - OTHER PULMONARY EMBOLISM WITHOUT ACUTE COR PULMONALE other chronic without acute cor pulmonale I27.82 - Chronic pulmonary embolism (4) Abdominal pain Acute R10.9 - UNSPECIFIED ABDOMINAL PAIN right lower quadrant R10.31 - Right lower quadrant pain
--- NOTE | 2016-08-31 13:36 | GENMEDPROG ---
Subjective Note: Patient in chair responsive follows commands. Still fair amount of indigestion but denies any nausea vomiting.. Passing flatus and liquidy stool. Still fair amount of postop pain. Patient denies and difficulties breathing cough phlegm production.. Notes Reviewed: Yes Events from last night noted and discussed with Clinical Staff Current Medication List: Reviewed Currently: Reports: NUNEZ, Reflux Sx, Abdominal Pain. Denies: Cough, Wheezing, SOB, Sputum, Nausea and Vomiting DVT Prophylaxis: Yes - Physical Examination Vital Signs and I&O: Last Vital Signs Temp 98.4 F 08/31/16 06:00 Pulse 62 08/31/16 09:10 Resp 16 08/31/16 06:00 BP 121/54 L 08/31/16 09:10 Pulse Ox 96 08/31/16 09:10 Oxygen Pulse Oxygen Saturation 96 O2 Device Nasal Cannula Oxygen Flow Rate 1 Fraction of Inspired Oxygen ( 100 FIO2) Intake & Output 08/28/16 08/29/16 08/30/16 08/31/16 23:59 23:59 23:59 23:59 Intake Total 1342 1497 1010 817 Output Total 9732 830 8148 1620 Balance 32 912 10 -803 Patient's weight 76.374 kg 76.232 kg 77.224 kg 77.252 kg General: Alert, Oriented x3, Cooperative HEENT: Normal, PERRLA, EOMI Neck: Normal Trachea alignment, Limited range of motion Lymphatics: Normal Respiratory: Normal - CTA, Diminished, Rhonchi Cardiovascular: Regular rate, Normal S1, Normal S2, Murmurs GI: Soft, Tenderness Extremities/Musculoskeletal: Edema. negative: Tenderness, Swelling, Clubbing, Cyanosis Skin: Warm,Dry and Intact, No rashes, No breakdown, No significant lesion Neurological: Normal speech, Normal tone Psych/Mental Status: Appropriate, Cooperative, Anxious Lab/DI/Studies Reviewed: Allergies lisinopril Allergy (Severe, Verified 08/25/16 16:46) ANGIOEDEMA nabumetone [From Relafen] Allergy (Severe, Verified 08/25/16 16:46) SWELLINMG lorazepam Adverse Reaction (Verified 08/25/16 16:46) See Comments Patient could not tolerate Lorazepam, it made her extremely 'loopy' and she said she would not like to take it ever again. Last Vital Signs Temp 98.4 F 08/31/16 06:00 Pulse 62 08/31/16 09:10 Resp 16 08/31/16 06:00 BP 121/54 L 08/31/16 09:10 Pulse Ox 96 08/31/16 09:10 08/28/16 06:20 08/31/16 06:10 - Assessment (1) Acute appendicitis Acute K35.80 - UNSPECIFIED ACUTE APPENDICITIS Qualifiers: Acute appendicitis type: unspecified acute appendicitis type Qualified Code (s): K35.80 - Unspecified acute appendicitis Comment/Plan: Status post surgery, recovering well. Continue postop care. Drain in place. (2) Peritonitis Acute K65.9 - PERITONITIS, UNSPECIFIED Comment/Plan: Continue IV antibiotics , cultures growing corynebacterium. (3) Pulmonary embolism Acute I26.99 - OTHER PULMONARY EMBOLISM WITHOUT ACUTE COR PULMONALE Qualifiers: Pulmonary embolism type: other Chronicity: chronic Acute cor pulmonale presence: without acute cor pulmonale Qualified Code(s): I27.82 - Chronic pulmonary embolism Comment/Plan: Continue Eliquis (4) Dehydration Acute E86.0 - DEHYDRATION Comment/Plan: Continue IV fluids (5) GERD (gastroesophageal reflux disease) Acute K21.9 - GASTRO-ESOPHAGEAL REFLUX DISEASE WITHOUT ESOPHAGITIS Qualifiers: Esophagitis presence: without esophagitis Qualified Code(s): K21.9 - Gastro -esophageal reflux disease without esophagitis Comment/Plan: Continue PPI (6) Hypertension Acute I10 - ESSENTIAL (PRIMARY) HYPERTENSION Qualifiers: Hypertension type: essential hypertension Qualified Code(s): I10 - Essential (primary) hypertension Comment/Plan: Continue medications, control pain. Monitor (7) Dyslipidemia Chronic E78.5 - HYPERLIPIDEMIA, UNSPECIFIED Comment/Plan: Continue medications (8) Physical deconditioning Acute R53.81 - OTHER MAL[place]ISE Comment/Plan: Continue PTOT. Case Care Discussed with: Patient, Consultants, Family, Nursing Staff, Criminal Justice Instructor Education/Counseling Given To: Patient Education/Counseling Given Regarding: Diagnosis, Treatment, Prognosis, Follow Up Total Time: 45 min Critical Care: No Code: 44954 (12+)
[2016-09-01 04:51] VITALS: BMI 27.9
[2016-09-01] MEDS: SODIUM CHLORIDE 0.9% 3 ML FLUSH FLUSH SCH (05:50)
[2016-09-01] MEDS: PIPERACILLIN AND TAZOBACTAM 3.375 GM in D5W 100 ML IV SCH ×3 (05:50→17:04)
[2016-09-01] MEDS: GABAPENTIN 300 MG CAP PO SCH ×2 (05:51→15:36)
[2016-09-01] MEDS: PANTOPRAZOLE 40 MG TAB PO SCH ×2 (05:51→17:04)
[2016-09-01] MEDS: FUROSEMIDE 20 MG TAB PO SCH ×2 (08:14→17:04)
[2016-09-01] MEDS: LOSARTAN POTASSIUM 50 MG TAB PO SCH (08:14)
[2016-09-01] MEDS: OMEGA-3-ACID ETHYL ESTERS 1000 MG CAP PO SCH (08:14)
[2016-09-01] MEDS: SPIRONOLACTONE 25 MG TAB PO SCH (08:14)
[2016-09-01] MEDS: APIXABAN 5 MG TABLET PO SCH (08:14)
[2016-09-01] MEDS: PROBIOTIC BLEND TAB PO SCH ×2 (11:47→17:04)
[2016-09-01] MEDS: CALCIUM CARBONATE + VITAMIN D 500 MG TAB PO SCH ×2 (11:47→17:04)
[2016-09-01] MEDS: VITS,MINERALS,IRON TAB PO SCH (11:47)
--- NOTE | 2016-09-01 12:40 | PCM.DCS92 ---
- Final/Secondary Discharge Diagnosis (1) Acute appendicitis Acute K35.80 - UNSPECIFIED ACUTE APPENDICITIS Present on Admission: Yes unspecified acute appendicitis type K35.80 - Unspecified acute appendicitis Comment: Status post surgery, recovering well. Continue postop care. Drain has been removed (2) Peritonitis Acute K65.9 - PERITONITIS, UNSPECIFIED Comment: Continue po antibiotics, cultures growing corynebacterium and strep.. 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 Monitor (7) Dyslipidemia Chronic E78.5 - HYPERLIPIDEMIA, UNSPECIFIED Present on Admission: Yes Comment: Continue medications (8) Physical deconditioning Acute R53.81 - OTHER MALAISE Present on Admission: Yes Comment: Continue PTOT. Discharge Disposition: Long Term Facility Discharge Condition: Improved Cognitive Discharge Status: Unimpaired Fuctional Discharge Status: Walker Assistance, Wheelchair Assistance, Deconditioning, Ambulatory Dysfunction Physician Follow up/Referrals: Prasanth Combs MD [Primary Care Provider] - One Week New Prescriptions: Amoxicillin/Potassium Clav [Augmentin 875-125 Tablet] 1 each PO TIDAC #21 tablet L.acidoph/B.animalis/B.longum [Florajen3 Capsule] 460 mg PO DAILY #60 capsule Furosemide [Lasix] 40 mg PO BID #60 tab Levofloxacin [Levaquin] 750 mg PO DAILY #7 tablet Omeprazole 40 mg PO DAILY #30 capsule. Oxycodone Immediate Release [Oxycodone Immediate Release (OxyIR)] 5 mg PO Q4H PRN #30 tab PRN Reason: Pain Ondansetron HCl [Zofran] 4 mg PO Q6H PRN #30 tab PRN Reason: Nausea/Vomiting O2 Device: Room Air Diet at Discharge: As Tolerated, Cardiac, Heart Healthy, Low Salt, High Fiber Activity: As Tolerated Call Office For: Worsening Symptoms, Wound is Draining Pus, Fever over 101 F Discontinue use of:: Alcohol, All Illegal Substances, All Types of Tobacco - DC Summary Notes Home Health Need / Long Term Services:: CBC CMP BnP magnesium level on Sunday Hospital Course Note:: Discharge summary on patient named SANTO NUNN admitted to [facility] on 08/25/16 by Brijesh Villegas MD. Date of discharge is . Patient was initially brought to emergency room on August 25 for evaluation of sudden onset of very intense lower abdominal pain. Please refer to the admission for further details. CT abdomen and pelvis was obtained which showed acute appendicitis. Further workup also confirm UTI. [facility] consultation was obtained and she was seen evaluated by Dr. Villegas. Treatment broad-spectrum antibiotics and IV fluids was instituted her Eliquis was placed on hold. On AUG 27 patient was taken to operating room and was found to have acute appendicitis with abscess and perforation. Laparoscopic appendectomy was performed drain was left in place. Treatment of IV antibiotics was continued maximal supportive care was provided. Patient developed mild postop ileus and has recovered from that fairly quickly and normal bowel function has returned. Peritoneal cavity fluid culture grew Streptococcus and Corynebacterium and during hospital stay patient has received antibiotics in the form of gentamicin vancomycin and Zosyn. Eliquis was restarted and there was no bleeding complications related to this medication. Her white blood count has normalized renal function remained within normal range. Her diet was gradually advanced and by time of discharge patient is able to tolerate regular diet. She was seen evaluated by PT OT and given significant deconditioning related to surgery and acute illness inpatient skilled therapy was recommended. On September 01 drain was removed by consulting surgeon. During hospital stay patient has remained hemodynamically stable, there was no signs of any respiratory compromise ID. It was felt that by September 01 she has reached maximum benefit of inpatient therapy and in clinically stable improved condition after being cleared for discharge by surgeon patient has been transferred to local long-term facility for PT and OT. She will be followed there by her personal PCP Dr. Prasanth Celestin. Total Time: 45 min . Code: 69367 (>30min.) - Physical Exam Vital Signs: Last Vital Signs Temp 97.9 F 09/01/16 04:51 Pulse 59 L 09/01/16 08:13 Resp 18 09/01/16 04:51 BP 122/61 09/01/16 08:13 Pulse Ox 93 09/01/16 09:01 Oxygen Pulse Oxygen Saturation 93 O2 Device Nasal Cannula Oxygen Flow Rate 1 Fraction of Inspired Oxygen ( 100 FIO2) Constitutional: No apparent distress, Alert Oriented to: Time, Person, Place - HEENT Head: Normal. negative: Abrasion, Laceration, Tender Eye: Normal. negative: Edema, Scleral Icterus Oropharynx: Normal. negative: Membranes Dry, Red ENT EAC: Normal. negative: Blood TMJ: Normal. negative: Crepitance, Tender Nose: No Symptoms Reported. negative: Abrasion, Bleeding - Respiratory/Cardiovascular Respiratory: Normal - CTA, Diminished, Rhonchi Cardiovascular: Normal, Systolic murmur - GI Auscultation: Normal. negative: Bruit Palpation: Normal. negative: Enlarged liver, Enlarged spleen Tenderness: Mild, RLQ Hoang's Sign: Negative Rectal Exam: Deferred Stool: Brown - Exam Deferred: Yes - Musculoskeletal Back: Normal. negative: Abrasion, CVA Tenderness Extremities: Normal. negative: Calf Tenderness, Clubbing, Cyanosis, Edema - Integumentary Skin: Normal, Warm, Dry Lymphatics: Normal - Neurologic Memory Impaired: Normal Motor Function: Abnormal Cranial Nerve: Normal Cerebellar: Normal Mood Description: Normal, Anxious Thought: Coherent Perception: Normal - Other Exam Other Exam Findings: Allergies lisinopril Allergy (Severe, Verified 08/25/16 16:46) ANGIOEDEMA nabumetone [From Relafen] Allergy (Severe, Verified 08/25/16 16:46) SWELLINMG lorazepam Adverse Reaction (Verified 08/25/16 16:46) See Comments Patient could not tolerate Lorazepam, it made her extremely 'loopy' and she said she would not like to take it ever again. Discharge Home Medication List Calcium Carbonate + Vitamin D [Oscal with Vitamin D] 500 mg PO BID 10/29/14 [ History Confirmed 08/25/16] Fe Fum/Vit E AC/Vit Bcomp&C/Mn [B-50 Formula Tablet] 1 tab PO QHS 10/29/14 [ History Confirmed 08/25/16] Gabapentin [Neurontin] 300 mg PO TID 10/29/14 [History Confirmed 08/25/16] Losartan Potassium [Cozaar] 50 mg PO DAILY 10/29/14 [History Confirmed 08/25/16] [place]-3 Fatty Acids/Fish Oil [Fish Oil 1,000 mg Capsule] 1,000 mg PO BID [History Confirmed 08/25/16] Spironolactone [Aldactone] 25 mg PO DAILY 10/29/14 [History Confirmed 08/25/16] Apixaban [Eliquis] 2.5 mg PO BID 08/25/16 [History Confirmed 08/25/16] Amoxicillin/Potassium Clav [Augmentin 875-125 Tablet] 1 each PO TIDAC #21 tablet 09/01/16 [Rx] Furosemide [Lasix] 40 mg PO BID #60 tab 09/01/16 [Rx] L.acidoph/B.animalis/B.longum [Florajen3 Capsule] 460 mg PO DAILY #60 capsule [Rx] Levofloxacin [Levaquin] 750 mg PO DAILY #7 tablet 09/01/16 [Rx] Omeprazole 40 mg PO DAILY #30 capsule. 09/01/16 [Rx] Ondansetron HCl [Zofran] 4 mg PO Q6H PRN #30 tab 09/01/16 [Rx] Oxycodone Immediate Release [Oxycodone Immediate Release (OxyIR)] 5 mg PO Q4H PRN #30 tab 09/01/16 [Rx] New Discharge Medications (Rx) Amoxicillin/Potassium Clav [Augmentin 875-125 Tablet] 1 each PO TIDAC #21 tablet 09/01/16 [Rx] Furosemide [Lasix] 40 mg PO BID #60 tab 09/01/16 [Rx] L.acidoph/B.animalis/B.longum [Florajen3 Capsule] 460 mg PO DAILY #60 capsule [Rx] Levofloxacin [Levaquin] 750 mg PO DAILY #7 tablet 09/01/16 [Rx] Omeprazole 40 mg PO DAILY #30 capsule. 09/01/16 [Rx] Ondansetron HCl [Zofran] 4 mg PO Q6H PRN #30 tab 09/01/16 [Rx] Oxycodone Immediate Release [Oxycodone Immediate Release (OxyIR)] 5 mg PO Q4H PRN #30 tab 09/01/16 [Rx] Home Medications Calcium Carbonate + Vitamin D [Oscal with Vitamin D] 500 mg PO BID 10/29/14 Fe Fum/Vit E AC/Vit Bcomp&C/Mn [B-50 Formula Tablet] 1 tab PO QHS 10/29/14 Gabapentin [Neurontin] 300 mg PO TID 10/29/14 Losartan Potassium [Cozaar] 50 mg PO DAILY 10/29/14 [place]-3 Fatty Acids/Fish Oil [Fish Oil 1,000 mg Capsule] 1,000 mg PO BID Spironolactone [Aldactone] 25 mg PO DAILY 10/29/14 Apixaban [Eliquis] 2.5 mg PO BID 08/25/16 Amoxicillin/Potassium Clav [Augmentin 875-125 Tablet] 1 each PO TIDAC #21 tablet 09/01/16 Furosemide [Lasix] 40 mg PO BID #60 tab 09/01/16 L.acidoph/B.animalis/B.longum [Florajen3 Capsule] 460 mg PO DAILY #60 capsule Levofloxacin [Levaquin] 750 mg PO DAILY #7 tablet 09/01/16 Omeprazole 40 mg PO DAILY #30 capsule. 09/01/16 Ondansetron HCl [Zofran] 4 mg PO Q6H PRN #30 tab 09/01/16 Oxycodone Immediate Release [Oxycodone Immediate Release (OxyIR)] 5 mg PO Q4H PRN #30 tab 09/01/16 08/28/16 06:20 08/31/16 06:10 Microbiology 08/25/16 01:25 Blood Blood Culture - Final No growth aerobically or anaerobically at 120 hours. NORMAL VALUE = No growth 08/25/16 01:20 Blood Blood Culture - Final No growth aerobically or anaerobically at 120 hours. NORMAL VALUE = No growth 08/28/16 16:20 Sputum Gram Stain - Final 08/28/16 16:20 Sputum Sputum Culture - Final Normal oral/respiratory yulia present 08/26/16 00:05 Urine - Clean Catch - Midstream Urine Culture - Final Mixed skin/vaginal contaminants Last Vital Signs Temp 97.9 F 09/01/16 04:51 Pulse 59 L 09/01/16 08:13 Resp 18 09/01/16 04:51 BP 122/61 09/01/16 08:13 Pulse Ox 93 09/01/16 09:01
--- NOTE | 2016-09-01 12:49 | PCM.SURGRO ---
- Subjective Patient: Reports: No new complaints, Feels better - Objective / Physical Exam Vital Signs: Temperature: 97.9 F (09/01/16 04:51) HR: 59 (09/01/16 08:13)RR: 18 (09/01/16 04: 51) BP: 122/61 (09/01/16 08:13)Pulse Ox: 93 (09/01/16 09:01) General: Alert, Oriented x3, Cooperative HEENT: Normal, PERRLA, EOMI Respiratory: Normal - CTA Cardiovascular: Regular rate Gastrointestinal: Soft, Bowel Sounds. negative: Distended, Tender Extremities: negative: Tenderness, Swelling, Edema, Clubbing, Cyanosis Psych/Mental Status: Appropriate, Cooperative Neurological: Strength at 5/5 X4 ext, Cranial nerves 3-12 NL Surgical wound: Clean/Dry, Intact, Approximated - Assessment and Plan (1) Acute appendicitis Acute K35.80 - UNSPECIFIED ACUTE APPENDICITIS Present on Admission: Yes K35.80 - Unspecified acute appendicitis Comment/Plan: Doing well. Ok to advance diet and transfer to SNF since afeb, tolerating liquids, no pain, ambulating with no complaints. Drain removed. Will see in office. (2) Deep vein thrombosis, lower left extremity Acute I82.402 - ACUTE EMBOLISM AND THOMBOS UNSP DEEP VEINS OF L LOW EXTREM (3) Pulmonary embolism Chronic I26.99 - OTHER PULMONARY EMBOLISM WITHOUT ACUTE COR PULMONALE I27.82 - Chronic pulmonary embolism (4) Abdominal pain Acute R10.9 - UNSPECIFIED ABDOMINAL PAIN R10.31 - Right lower quadrant pain
[2016-09-01] MEDS ORDERED: NS IV ONE (14:00)
[2016-09-01] MEDS ORDERED: GENTAMICIN IV ONE (14:00)
[2016-09-01 14:27] VITALS: BP 115/56; PULSE 58; TEMP 98.6
== END 2016-09-01 18:01 | DRG 339 ==
LOC: ED 16:15 → PCU 22:56 → MPS3 08-26 18:39
PROVIDERS: ADMIT Surgery; ATTEND Internal Medicine
PROC: 0DTJ4ZZ Resection of Appendix, Percutaneous Endoscopic Approach (ICD-10-PCS; principal; 2016-08-27 08:00)
DX: K35.3 Acute appendicitis with localized peritonitis (principal); N30.00 Acute cystitis without hematuria; I27.82 Chronic pulmonary embolism; B96.89 Other specified bacterial agents as the cause of diseases classified elsewhere; K91.3 Postprocedural intestinal obstruction; I10 Essential (primary) hypertension; B95.5 Unspecified streptococcus as the cause of diseases classified elsewhere; E86.0 Dehydration; Z86.718 Personal history of other venous thrombosis and embolism; Z79.01 Long term (current) use of anticoagulants; Y83.6 Removal of other organ (partial) (total) as the cause of abnormal reaction of the patient, or of later complication, without mention of misadventure at the time of the procedure; R53.81 Other malaise; G62.9 Polyneuropathy, unspecified; E78.5 Hyperlipidemia, unspecified; K21.9 Gastro-esophageal reflux disease without esophagitis; Z79.899 Other long term (current) drug therapy
CPT/HCPCS: 36415; 74177; 80048; 80053; 80170; 81001; 82962; 83605; 85025; 85027; 87040; 87070; 87075; 87076; 87077; 87086; 87186; 87205; 93005; 93306; 96361; 96365; 96375; 97161; 99283; A9698; J1170; J1335; J1580; J2001; J2405; J2543; J2710; J3010; J3370; J3490; J7030; J7060; J7070